=== PATIENT | female | born 1955 | race Caucasian/White ===

== ENCOUNTER 2016-08-08 08:54 | Emergency (ER) | payer OTHER ==
[~2016-08-08] VITALS: Ht 157.5 cm; Wt 73.9 kg
[2016-08-08] MEDS ORDERED: PLAV75TA38 PO (09:06)
[2016-08-08] MEDS ORDERED: FURO20TA2 PO (09:06)
[2016-08-08] MEDS ORDERED: ALBU17IN2 INH (09:06)
[2016-08-08] MEDS ORDERED: ADV250INH INH (09:06)
[2016-08-08] MEDS ORDERED: SIMV40TA2 PO (09:06)
[2016-08-08] MEDS ORDERED: MORPHINE 2 MG/ML 1ML SYRINGE IV PRN (09:30)
[2016-08-08] MEDS ORDERED: PANTOPRAZOLE 40MG INJ (PROTONIX) (C9113) IV ONE (09:30)
[2016-08-08 10:06] LABS: BASO % 0.1 % (0.0-1.0); EOS # 0.4 K/mm3 (0.0-0.50); LARGE UNSTAINED CELL # 0.1 K/mm3 (0.0-0.4); LARGE UNSTAINED CELL % 1.6 % (0.0-4.0); LYMPH # 0.4 K/mm3 (1.5-4.5); LYMPH % 6.9 % (24.0-44.0); MEAN CORPUSCULAR HEMOGLOBIN 30.5 pg (27.0-33.0); MEAN CORPUSCULAR HGB CONC 33.4 g/dl (32.0-36.5); MEAN CORPUSCULAR VOLUME 91.5 fl (80.0-96.0); MONO # 0.4 K/mm3 (0.0-0.8); MONO % 6.2 % (0.0-5.0); NEUTROPHILS # 4.9 K/mm3 (1.8-7.7); NEUTROPHILS % 78.3 % (36.0-66.0); PLATELET COUNT, AUTOMATED 236 k/mm3 (150-450); RED CELL DISTRIBUTION WIDTH 12.9 % (11.5-14.5); WHITE BLOOD COUNT 6.2 K/mm3 (4.0-10.0)
[2016-08-08 10:31] LABS: ALBUMIN/GLOBULIN RATIO 1.25 (1.00-1.93); ALKALINE PHOSPHATASE 90 U/L (45-117); ALT/SGPT 32 U/L (12-78); AMYLASE 62 U/L (25-115); ANION GAP 8 MEQ/L (8-16); AST/SGOT 23 U/L (15-37); BILIRUBIN,DIRECT 0.1 MG/DL (0.0-0.2); BILIRUBIN,TOTAL 0.4 MG/DL (0.2-1.0); BLOOD UREA NITROGEN 9 MG/DL (7-18); CALCIUM LEVEL 9.2 MG/DL (8.5-10.1); CARBON DIOXIDE LEVEL 28 MEQ/L (21-32); CHLORIDE LEVEL 107 MEQ/L (98-107); CREATININE FOR GFR 0.81 MG/DL (0.55-1.02); GLOMERULAR FILTRATION RATE > 60.0 (>51); GLUCOSE, FASTING 95 MG/DL (70-105); POTASSIUM SERUM 4.1 MEQ/L (3.5-5.1); SODIUM LEVEL 143 MEQ/L (136-145); TOTAL PROTEIN 7.2 GM/DL (6.4-8.2)
--- NOTE | 2016-08-08 10:34 | REP ---
Clinical: Lower chest and abdominal pain . Comparison: 04/12/2014 . Technique: PA and lateral. Findings: The mediastinum and cardiac silhouette are normal. The lung stubbs are clear and without acute consolidation, effusion, or pneumothorax. The skeletal structures are intact and normal. Impression: 1. No acute cardiopulmonary process. Signed by Andrew Khan MD 08/08/2016 10:25 A
[2016-08-08] MEDS ORDERED: MORPHINE 2 MG/ML 1ML SYRINGE IV ONE (11:15)
--- NOTE | 2016-08-08 12:38 | REP ---
RIGHT UPPER QUADRANT ULTRASOUND: Real-time sonographic evaluation of the right upper quadrant performed. 5 mm polyp is seen in the gallbladder without gallstones, gallbladder wall thickening or free fluid. There is no intrahepatic or extrahepatic biliary dilatation, common bile duct measuring 6 mm in diameter. Two cysts are seen in the liver, one in the right lobe 1.5 x 1.0 x 1.6 cm and left lobe 0.9 x 0.7 x 0.9 cm. Pancreas is not optimally seen due to overlying bowel gas, but the visualized portions are grossly unremarkable. Visualized pancreatic duct is not dilated. Right kidney demonstrates no hydronephrosis with a length of 10 cm. A cyst in the mid right kidney measures 8 x 7 x 10 mm. IMPRESSION: Tiny gallbladder polyp without gallstones, gallbladder wall thickening, or pericholecystic fluid, or biliary dilatation. Small cysts in the liver and right kidney. Signed by Bryan Teran MD 08/08/2016 01:28 P
[2016-08-08] MEDS ORDERED: TYLE325T5 PO (12:45)
[2016-08-08] MEDS ORDERED: ZANA4CAP PO (12:45)
[2016-08-08 13:19] VITALS: BP 143/67
--- NOTE | 2016-08-08 16:08 | ECGEPIP ---
Stationary ECG Study 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
== END 2016-08-08 13:20 | disposition home or self-care (01) ==
LOC: M ED 10:00
DX: M54.9 Dorsalgia, unspecified (principal); I25.2 Old myocardial infarction; K87 Disorders of gallbladder, biliary tract and pancreas in diseases classified elsewhere; N28.1 Cyst of kidney, acquired; K76.89 Other specified diseases of liver; Z79.02 Long term (current) use of antithrombotics/antiplatelets; Z79.899 Other long term (current) drug therapy; Z88.6 Allergy status to analgesic agent; Z88.1 Allergy status to other antibiotic agents; Z88.8 Allergy status to other drugs, medicaments and biological substances; Z91.89 Other specified personal risk factors, not elsewhere classified
CPT/HCPCS: 71020; 76705; 80048; 80076; 81001; 82150; 82550; 82553; 83690; 85025; 85379; 93005; 93041; 96374; 96375; 96376; 99285; C9113

== ENCOUNTER → 2016-11-08 | Outpatient (REF) | payer OTHER ==
[~2016-11-08] MED LIST: ADV250INH INH; ALBU17IN2 INH; FURO20TA2 PO; PLAV75TA38 PO; SIMV40TA2 PO; TYLE325T5 PO; ZANA4CAP PO
== END ==
LOC: M SFHCLERA 11:28
PROVIDERS: ATTEND Physician Assistant
DX: R30.0 Dysuria (principal)

== ENCOUNTER → 2016-11-12 | Outpatient (CLI) | payer OTHER ==
[2016-11-12 11:57] LABS: MEAN CORPUSCULAR HEMOGLOBIN 31.1 pg (27.0-33.0); MEAN CORPUSCULAR HGB CONC 33.1 g/dl (32.0-36.5); MEAN CORPUSCULAR VOLUME 94.1 fl (80.0-96.0); RED CELL DISTRIBUTION WIDTH 12.6 % (11.5-14.5); WHITE BLOOD COUNT 4.2 K/mm3 (4.0-10.0)
[2016-11-12 12:19] LABS: ANION GAP 5 MEQ/L (8-16); BLOOD UREA NITROGEN 13 MG/DL (7-18); CALCIUM LEVEL 8.4 MG/DL (8.5-10.1); CARBON DIOXIDE LEVEL 29 MEQ/L (21-32); CHLORIDE LEVEL 108 MEQ/L (98-107); CHOLESTEROL LEVEL 172 MG/DL (<200); CREATININE FOR GFR 0.89 MG/DL (0.55-1.02); GLOMERULAR FILTRATION RATE > 60.0 (>51); GLUCOSE, FASTING 101 MG/DL (70-105); SODIUM LEVEL 142 MEQ/L (136-145); TRIGLYCERIDES LEVEL 101 MG/DL (<150)
== END ==
LOC: M LRY 08:05
PROVIDERS: ATTEND Internal Medicine Cardiovascular Disease
DX: E78.00 Pure hypercholesterolemia, unspecified (principal); Z98.61 Coronary angioplasty status; E66.9 Obesity, unspecified; I25.9 Chronic ischemic heart disease, unspecified; I10 Essential (primary) hypertension

== ENCOUNTER → 2017-02-24 | Outpatient (CLI) | payer OTHER ==
[~2017-02-24] MED LIST changes: +PLAV1TAB2 PO; -PLAV75TA38 PO
--- NOTE | 2017-02-24 14:05 | REPMRS ---
Patient History The patient states she had a clinical breast exam in 02/2017. Patient is postmenopausal. Family history of breast cancer in sister at age 65 and breast cancer in maternal grandmother at age 50 or over. Digital Woman Screen Mammo: February 24, 2017 - Exam #: [id number] Bilateral CC and MLO view(s) were taken. Technologist: Tiffanie Bajwa, Technologist Prior study comparison: May 29, 2014, digital woman screen mammo performed at [facility]. March 02, 2013, digital woman screen mammo performed at [facility]. September 03, 2011, digital woman screen mammo performed at [facility] to [facility]. FINDINGS: There are scattered fibroglandular densities. There has been no change in the appearance of the mammogram from the prior studies. There is a mild amount of scattered fibroglandular density which is fairly symmetric. There is no interval development of dominant mass, architectural distortion, or clustered microcalcification suggestive of malignancy. ASSESSMENT: BI-RADS/ACR category 1 mammogram. Negative. Recommendation Routine screening mammogram in 1 year (for women over age 40). This mammogram was interpreted with the aid of an FDA-approved computer-aided dectection system. Electronically Signed By: Willi Garcia MD 02/24/17 [id number]
== END ==
LOC: M WHC 13:01
PROVIDERS: ATTEND Nurse Practitioner Family
DX: Z12.31 Encounter for screening mammogram for malignant neoplasm of breast (principal)

== ENCOUNTER → 2017-08-11 | Outpatient (REF) | payer OTHER ==
[2017-08-11 18:52] LABS: APPEARANCE, URINE CLEAR (CLEAR); BACTERIA, URINE AUTO NEGATIVE (NEGATIVE); BILIRUBIN, URINE AUTO NEGATIVE (NEGATIVE); BLOOD, URINE BLOOD 1+ (NEGATIVE); COLOR, URINE STRAW (YELLOW); GLUCOSE, URINE (UA) AUTO NEGATIVE (NEGATIVE); KETONE, URINE AUTO NEGATIVE (NEGATIVE); LEUKOCYTE ESTERASE, URINE AUTO NEGATIVE (NEGATIVE); MUCUS, URINE SMALL (NEGATIVE); NITRITE, URINE AUTO NEGATIVE (NEGATIVE); PROTEIN, URINE AUTO NEGATIVE (NEGATIVE); RBC, URINE AUTO 3 /HPF (0-3); SPECIFIC GRAVITY URINE AUTO 1.006 (1.002-1.035); SQUAMOUS EPITHELIAL CELL UR AU 0 /HPF (0-6); UROBILINOGEN, URINE AUTO 0.2 mg/dL (0.0-2.0); WBC, URINE AUTO 0 /HPF (0-3)
== END ==
LOC: M SFHCWAGY 17:10
DX: N94.9 Unspecified condition associated with female genital organs and menstrual cycle (principal); R31.29 Other microscopic hematuria

== ENCOUNTER → 2018-02-25 | Outpatient (CLI) | payer OTHER | LOC: M WHC 13:27 | DX: Z12.31 Encounter for screening mammogram for malignant neoplasm of breast (principal) ==

== ENCOUNTER → 2018-02-25 | Outpatient (REF) | payer OTHER ==
[2018-02-27 14:11] LABS: HPV HYBRID CAPTURE II Negative (Negative)
== END ==
LOC: M SFHCWAGY 13:41
DX: Z12.72 Encounter for screening for malignant neoplasm of vagina (principal)
CPT/HCPCS: G0123

== ENCOUNTER → 2018-03-01 | Outpatient (REF) | payer OTHER | LOC: M LAB REF 11:37 | DX: M67.472 Ganglion, left ankle and foot (principal) ==

== ENCOUNTER → 2018-07-09 | Outpatient (CLI) | payer OTHER ==
[~2018-07-09] MED LIST changes: +BREO1INH3 INH; +CRES10TA32 PO; +INCR1INH INH; +MONT10TA2; +OMEP40CA2 PO
[2018-07-09 17:37] LABS: BLOOD UREA NITROGEN 11 MG/DL (7-18); CALCIUM LEVEL 8.8 MG/DL (8.8-10.2); CARBON DIOXIDE LEVEL 29 MEQ/L (21-32); CHLORIDE LEVEL 106 MEQ/L (98-107); CREATININE FOR GFR 0.79 MG/DL (0.55-1.30); GLOMERULAR FILTRATION RATE > 60.0 (>45); GLUCOSE, FASTING 92 MG/DL (70-100); POTASSIUM SERUM 3.8 MEQ/L (3.5-5.1); SODIUM LEVEL 141 MEQ/L (136-145)
[2018-07-09 17:44] LABS: HEMATOCRIT 42.8 % (36.0-47.0); HEMOGLOBIN 14.1 g/dl (12.0-15.5); MEAN CORPUSCULAR HEMOGLOBIN 30.3 pg (27.0-33.0); MEAN CORPUSCULAR HGB CONC 32.9 g/dl (32.0-36.5); PLATELET COUNT, AUTOMATED 222 10^3/uL (150-450); RED BLOOD COUNT 4.65 10^6/uL (4.00-5.40); WHITE BLOOD COUNT 4.8 10^3/uL (4.0-10.0)
== END ==
LOC: M LRY 14:19
PROVIDERS: ATTEND Nurse Practitioner Adult Health
DX: M67.472 Ganglion, left ankle and foot (principal)

== ENCOUNTER → 2018-07-10 | Outpatient (CLI) | payer OTHER ==
--- NOTE | 2018-07-10 15:59 | ECGEPIP ---
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 Rule out prior IWMI Nonspecific ST/T-wave abnormalities - More prominent than in 08/08/16 Clinical correlation advised Electronically Signed On 07-10-2018 15:58:58 EST by Shun Isaacs
== END ==
LOC: M EKG 10:56
PROVIDERS: ATTEND Podiatrist Foot & Ankle Surgery
DX: M67.472 Ganglion, left ankle and foot (principal)

== ENCOUNTER 2018-07-21 05:46 | Day surgery (SDC) | payer OTHER ==
[~2018-07-21] VITALS: Ht 157.5 cm; Wt 74.8 kg
[2018-07-21] MEDS ORDERED: LR 1,000 ML IV ONE (06:00)
[2018-07-21] MEDS ORDERED: SCOPOLAMINE 1MG TRANSDERMAL PATCH As Ordered ONE (07:07)
[2018-07-21] MEDS ORDERED: PROPOFOL 500 MG/50 ML VIAL As Ordered ONE (07:11)
[2018-07-21] MEDS ORDERED: MIDAZOLAM INJ 2 MG/2 ML VIAL (J2250) As Ordered ONE (07:11)
[2018-07-21] MEDS ORDERED: fentaNYL 100 MCG/2 ML INJECTION (J3010) As Ordered ONE (07:11)
[2018-07-21] MEDS ORDERED: LIDOCAINE 2% INJ 100 MG/5 ML SDV (FOR ANES.) As Ordered ONE (07:12)
[2018-07-21] MEDS ORDERED: LIDOCAINE 1% MDV 20ML VIAL As Ordered ONE (07:15)
[2018-07-21] MEDS ORDERED: dexameTHASONE 4 MG/ML 1ML VIAL (J1100) As Ordered ONE ×2 (07:15→07:18)
[2018-07-21] MEDS ORDERED: BUPIVACAINE HCL 0.5% 10 ML VIAL As Ordered ONE (07:15)
[2018-07-21] MEDS ORDERED: ONDANSETRON 4MG/2ML VIAL (J2405) As Ordered ONE (07:18)
[2018-07-21] MEDS ORDERED: SCOPOLAMINE 1MG TRANSDERMAL PATCH TOP ONE (07:30)
[2018-07-21] MEDS ORDERED: HYDR-3713 PO (08:19)
[2018-07-21] MEDS ORDERED: ONDA4TAB6 PO (08:19)
[2018-07-21 09:03] VITALS: BP 130/71
--- NOTE | 2018-07-21 09:45 | RO ---
DATE OF PROCEDURE: 07/21/2018 PREPROCEDURE DIAGNOSIS: Ganglion cyst left side. POSTPROCEDURE DIAGNOSIS: Ganglion cyst left side. PROCEDURE: Left ganglion cyst excision foot. SURGEON: Dre Louis DPM CARE TECH: None. ANESTHESIA: Monitored anesthesia care with preoperative injection of 15 mL of 1:1 mixture of 1% lidocaine plain and 1/2% Marcaine plain. ESTIMATED BLOOD LOSS: Minimal. MATERIALS: #4-0 Vicryl, #4-0 Nylon. INJECTABLE: None. COMPLICATIONS: None. CONDITION: Stable. SPECIMENS: Left ganglion cyst. Salome Keen is a 62-year-old female who presented to [facility] with complaints of ganglion cyst left foot that has been present over a year and has been drained once but has returned. She presents today for surgical excision. The patient side and site were identified and marked in the preoperative holding area. Consent was reviewed and obtained. All risks, complications and alternatives of the procedure were explained to the patient in detail and all questions were answered. DESCRIPTION OF PROCEDURE: The patient was brought to the operating room and placed on the operating room table in supine position. Monitored anesthesia care was delivered by the anesthesia team. Preoperative injection of 15 mL of 1:1 mixture of 1% lidocaine plain and 1/2% Marcaine plain were injected to the left foot. The left foot was prepped and draped in a normal sterile fashion. Pain received Ancef preoperatively. Tourniquet was inflated to the left ankle and inflated to 250 mmHg. A linear incision was made over the ganglion cyst which was located at the dorsal lateral aspect of the foot. This was carried through with a #15 blade. Using tenotomy scissors, the cyst was carefully dissected free. Bovie was used to cauterize small vessels surrounding the cyst. The cyst was dissected from the stalk which was apparently arising from the sinus tarsi and this was sent for pathology. Stalk was cauterized. No further cyst or ganglion fluid was noted. Site was irrigated with normal saline. Incision was repaired with #4-0 Vicryl and #4-0 Nylon. Sterile dressings were applied. Tourniquet was deflated. Patient was brought to postanesthesia care unit with vital signs stable, neurovascular status intact. She will be weight bearing as tolerated. She will followup in office in 2 days.
== END 2018-07-21 09:26 | disposition home or self-care (01) ==
LOC: M SDC 05:46
PROVIDERS: ATTEND Podiatrist Foot & Ankle Surgery
DX: M67.472 Ganglion, left ankle and foot (principal); I10 Essential (primary) hypertension; I25.10 Atherosclerotic heart disease of native coronary artery without angina pectoris; I25.2 Old myocardial infarction; E78.00 Pure hypercholesterolemia, unspecified; J44.9 Chronic obstructive pulmonary disease, unspecified; K21.9 Gastro-esophageal reflux disease without esophagitis; R23.3 Spontaneous ecchymoses; M12.9 Arthropathy, unspecified; J45.909 Unspecified asthma, uncomplicated; R51 Headache; N32.89 Other specified disorders of bladder; Z88.1 Allergy status to other antibiotic agents; Z88.6 Allergy status to analgesic agent; Z91.048 Other nonmedicinal substance allergy status; Z79.899 Other long term (current) drug therapy; Z79.01 Long term (current) use of anticoagulants; Z95.5 Presence of coronary angioplasty implant and graft; Z90.710 Acquired absence of both cervix and uterus; Z87.891 Personal history of nicotine dependence
CPT/HCPCS: 25111; 88304; J0690; J1100; J2250; J2405; J3010

== ENCOUNTER → 2019-04-28 | Outpatient (CLI) | payer OTHER ==
[~2019-04-28] MED LIST changes: +CRES10TA PO; -CRES10TA32 PO; +HYDR-3713 PO; -OMEP40CA2 PO; +OMEP40CA97 PO; +ONDA4TAB6 PO; +PROV108A INH; -SIMV40TA2 PO; +SIMV40TA20 PO
== END ==
LOC: M PLALAB 15:06
PROVIDERS: ATTEND Nurse Practitioner Family
DX: Z13.79 Encounter for other screening for genetic and chromosomal anomalies (principal)

== ENCOUNTER → 2019-04-28 | Outpatient (REF) | payer OTHER | LOC: M SFHCWAGY 16:55 | PROVIDERS: ATTEND Nurse Practitioner Family | DX: R30.0 Dysuria (principal) ==

== ENCOUNTER → 2019-05-10 | Outpatient (REF) | payer OTHER ==
[2019-05-10 13:24] LABS: APPEARANCE, URINE CLEAR (CLEAR); BACTERIA, URINE AUTO 1+ (NEGATIVE); BILIRUBIN, URINE AUTO NEGATIVE (NEGATIVE); BLOOD, URINE BLOOD 1+ (NEGATIVE); COLOR, URINE YELLOW (YELLOW); GLUCOSE, URINE (UA) AUTO NEGATIVE (NEGATIVE); KETONE, URINE AUTO NEGATIVE (NEGATIVE); LEUKOCYTE ESTERASE, URINE AUTO TRACE (NEGATIVE); NITRITE, URINE AUTO NEGATIVE (NEGATIVE); PROTEIN, URINE AUTO NEGATIVE (NEGATIVE); RBC, URINE AUTO 1 /HPF (0-3); SPECIFIC GRAVITY URINE AUTO 1.005 (1.002-1.035); SQUAMOUS EPITHELIAL CELL UR AU 3 /HPF (0-6); UROBILINOGEN, URINE AUTO 0.2 mg/dL (0.0-2.0); WBC, URINE AUTO 1 /HPF (0-3)
== END ==
LOC: M SMT 13:00
PROVIDERS: ATTEND Nurse Practitioner Women's Health
DX: R31.29 Other microscopic hematuria (principal)

== ENCOUNTER → 2019-05-24 | Outpatient (CLI) | payer OTHER ==
[~2019-05-24] MED LIST changes: +ISOVUE-370 76% 100ML VIAL (Q9967) As Ordered ONE
[2019-05-24 16:59] LABS: BLOOD UREA NITROGEN 11 MG/DL (7-18); CALCIUM LEVEL 8.9 MG/DL (8.8-10.2); CARBON DIOXIDE LEVEL 28 MEQ/L (21-32); CHLORIDE LEVEL 104 MEQ/L (98-107); CREATININE FOR GFR 0.79 MG/DL (0.55-1.30); GLOMERULAR FILTRATION RATE > 60.0 (>45); GLUCOSE, FASTING 85 MG/DL (70-100); POTASSIUM SERUM 3.6 MEQ/L (3.5-5.1); SODIUM LEVEL 138 MEQ/L (136-145)
--- NOTE | 2019-05-24 20:49 | REP ---
Clinical: Microscopic hematuria. Technique: Axial precontrast, contrast enhanced, and delayed images of the abdomen and pelvis using 100 ml Isovue 370 intravenous contrast material with coronal and sagittal re-formations. Findings: Incidental subcentimeter left renal cortical cyst noted (image 36). Smaller cortical right renal cyst is also suggested. No further urinary tract abnormalities are identified. No nephroureterolithiasis, hydroureteronephrosis, or renal mass lesion. The kidneys demonstrate normal symmetric enhancement and excretion patterns. The bilateral ureters and bladder are normal. Liver demonstrates few scattered hypodensities compatible with cysts. Spleen, pancreas, gallbladder, and bilateral adrenal glands are normal. The enteric system is without obstruction or acute inflammatory process. Normal terminal ileum and appendix are identified in the right lower quadrant. Few scattered sigmoid diverticula noted without acute diverticulitis. Pelvis demonstrates normal bladder and evidence for prior hysterectomy. No ascites. No free air. No adenopathy. Abdominal aorta without aneurysm or dissection. Musculoskeletal structures are intact. Impression: 1. Subcentimeter renal cysts. No further urinary tract pathology. 2. Sigmoid diverticula without acute diverticulitis. 3. No further acute abdominopelvic pathology appreciated. Electronically Signed by Andrew Khan MD 05/24/2019 08:41 P
== END ==
LOC: M RAD 15:33
PROVIDERS: ATTEND Nurse Practitioner Women's Health
DX: R31.29 Other microscopic hematuria (principal); N28.1 Cyst of kidney, acquired
CPT/HCPCS: 36415; 74178; 80048; Q9967

== ENCOUNTER 2019-07-21 08:32 | Day surgery (SDC) | payer OTHER ==
[~2019-07-21] VITALS: Ht 157.5 cm; Wt 73.9 kg
[~2019-07-21 08:32] MED LIST changes: -ISOVUE-370 76% 100ML VIAL (Q9967) As Ordered ONE; +LIDOCAINE 2% INJ 100 MG/5 ML SDV (FOR ANES.) As Ordered ONE; -MONT10TA2; +MONT10TA4; +NS 1,000 ML IV ONE; +propofoL 200 MG/20 ML VIAL As Ordered ONE
--- NOTE | 2019-07-21 10:31 | ROOR ---
Patient Name: Salome Keen Procedure Date: 07/21/2019 10:10 AM Date of : 1955 Age: 63 [facility] Gender: Female Note Status: Finalized Procedure: Colonoscopy Indications: High risk colon cancer surveillance: Personal history of colonic polyps Providers: Claude Engel Jr, MD Referring MD: Wiliam Newman Requesting Provider: Medicines: Propofol per Anesthesia Complications: No immediate complications. Procedure: Pre-Anesthesia Assessment: - Prior to the procedure, a History and Physical was performed, and patient medications and allergies were reviewed. The patient is competent. The risks and benefits of the procedure and the sedation options and risks were discussed with the patient. All questions were answered and informed consent was obtained. Patient identification and proposed procedure were verified by the physician and the nurse in the pre-procedure area and in the procedure room. Mental Status Examination: alert and oriented. Airway Examination: normal oropharyngeal airway and neck mobility. Respiratory Examination: clear to auscultation. CV Examination: normal. ASA Grade Assessment: II - A patient with mild systemic disease. After reviewing the risks and benefits, the patient was deemed in satisfactory condition to undergo the procedure. The anesthesia plan was to use moderate sedation / analgesia (conscious sedation). Immediately prior to administration of medications, the patient was re-assessed for adequacy to receive sedatives. The heart rate, respiratory rate, oxygen saturations, blood pressure, adequacy of pulmonary ventilation, and response to care were monitored throughout the procedure. The physical status of the patient was re-assessed after the procedure. The Colonoscope was introduced through the anus and advanced to the cecum, identified by appendiceal orifice and ileocecal valve. The colonoscopy was performed without difficulty. The patient tolerated the procedure well. The quality of the bowel preparation was adequate. Findings: The rectum, recto-sigmoid colon, sigmoid colon, descending colon, transverse colon, cecum, appendiceal orifice and ileocecal valve appeared normal. A small polyp was found in the ascending colon. The polyp was removed with a cold snare. Resection and retrieval were complete. Non-bleeding external and internal hemorrhoids were found during endoscopy. The hemorrhoids were moderate. Impression: - The rectum, recto-sigmoid colon, sigmoid colon, descending colon, transverse colon, cecum, appendiceal orifice and ileocecal valve are normal. - One small polyp in the ascending colon, removed with a cold snare. Resected and retrieved. - Non-bleeding external and internal hemorrhoids. Recommendation: - Discharge patient to home (ambulatory). - Repeat colonoscopy in 5 years for surveillance. Claude Engel MD Claude Engel Jr, MD 07/21/2019 10:30:47 AM Electronically signed by Claude Engel Jr, MD Number of Addenda: 0 Note Initiated On: 07/21/2019 10:10 AM Estimated Blood Loss: Estimated blood loss: none.
[2019-07-21 10:50] VITALS: BP 149/103
== END 2019-07-21 10:55 | disposition home or self-care (01) ==
LOC: M OPP 08:32
PROVIDERS: ATTEND Surgery
DX: Z12.11 Encounter for screening for malignant neoplasm of colon (principal); Z86.010 Personal history of colon polyps; K64.8 Other hemorrhoids; D12.2 Benign neoplasm of ascending colon; I25.2 Old myocardial infarction; Z95.5 Presence of coronary angioplasty implant and graft; Z79.899 Other long term (current) drug therapy; Z88.1 Allergy status to other antibiotic agents; Z88.6 Allergy status to analgesic agent; Z88.8 Allergy status to other drugs, medicaments and biological substances; Z91.048 Other nonmedicinal substance allergy status

== ENCOUNTER 2020-06-06 10:00 | Inpatient (IN) | payer OTHER ==
[~2020-06-06] VITALS: Ht 157.5 cm; Wt 73.6 kg
[2020-06-06] MEDS: TIOTROPIUM INHALER/CAPSULE (SPIRIVA) INH SCH (08:00)
[~2020-06-06 10:00] MED LIST changes: -LIDOCAINE 2% INJ 100 MG/5 ML SDV (FOR ANES.) As Ordered ONE; +MONT10TA10 PO; -MONT10TA4; -NS 1,000 ML IV ONE; -propofoL 200 MG/20 ML VIAL As Ordered ONE
--- OUTSIDE RECORDS SUMMARY | 2020-06-06 10:07 | CCD ---
Author Author [facility] Organization [facility] Address Unknown Phone Unavailable Care Team Providers Care Seafood Packer Name Role Phone Beny, N Robbie WATCHSTANDER Unavailable Unavailable [place], N Robbie WATCHSTANDER Unavailable Unavailable Beny, N Robbie WATCHSTANDER Unavailable Unavailable Beny, N Robbie WATCHSTANDER Unavailable Unavailable Beny, N Robbie WATCHSTANDER Unavailable Unavailable [place], N Robbie WATCHSTANDER Unavailable Unavailable Beny, N Robbie WATCHSTANDER Unavailable Unavailable [place], N Robbie WATCHSTANDER Unavailable Unavailable [place], N Robbie WATCHSTANDER Unavailable Unavailable [place], N Robbie WATCHSTANDER Unavailable Unavailable Beny, N Robbie WATCHSTANDER Unavailable Unavailable Beny, N Robbie WATCHSTANDER Unavailable Unavailable Beny, N Robbie WATCHSTANDER Unavailable Unavailable [place], N Robbie WATCHSTANDER Unavailable Unavailable Beny, N Robbie WATCHSTANDER Unavailable Unavailable [place], N Robbie WATCHSTANDER Unavailable Unavailable Beny, N Robbie WATCHSTANDER Unavailable Unavailable Beny, N Robbie WATCHSTANDER Unavailable Unavailable [place], N Robbie WATCHSTANDER Unavailable Unavailable [place], N Robbie WATCHSTANDER Unavailable Unavailable Beny, N Robbie WATCHSTANDER Unavailable Unavailable Beny, N Robbie WATCHSTANDER Unavailable Unavailable Beny, N Robbie WATCHSTANDER Unavailable Unavailable Beny, N Robbie WATCHSTANDER Unavailable Unavailable Beny, N Robbie WATCHSTANDER Unavailable Unavailable [place], N Robbie WATCHSTANDER Unavailable Unavailable [place], N Robbie WATCHSTANDER Unavailable Unavailable Beny, N Robbie WATCHSTANDER Unavailable Unavailable Beny, N Robbie WATCHSTANDER Unavailable Unavailable Beny, N Robbie WATCHSTANDER Unavailable Unavailable Re-disclosure Warning The records that you are about to access may contain information from federally-assisted alcohol or drug abuse programs. If such information is present, then the following federally mandated warning applies: This information has been disclosed to you from records protected by federal confidentiality rules (42 CFR part 2). The federal rules prohibit you from making any further disclosure of this information unless further disclosure is expressly permitted by the written consent of the person to whom it pertains or as otherwise permitted by 42 CFR part 2. A general authorization for the release of medical or other information is NOT sufficient for this purpose. The Federal rules restrict any use of the information to criminally investigate or prosecute any alcohol or drug abuse patient.The records that you are about to access may contain highly sensitive health information, the redisclosure of which is protected by Article 27-F of the [facility] Public Health law. If you continue you may have access to information: Regarding HIV / AIDS; Provided by facilities licensed or operated by the [facility] Office of Mental Health; or Provided by the [facility] Office for People With Developmental Disabilities. If such information is present, then the following [facility] mandated warning applies: This information has been disclosed to you from confidential records which are protected by state law. State law prohibits you from making any further disclosure of this information without the specific written consent of the person to whom it pertains, or as otherwise permitted by law. Any unauthorized further disclosure in violation of state law may result in a fine or residential sentence or both. A general authorization for the release of medical or other information is NOT sufficient authorization for further disc losure. Allergies and Adverse Reactions Type Description Substance Reaction Status Data Source(s ) Environmental Environmental Environmental Unknown Active eCW1 ([facility]) Aspirin Aspirin Aspirin Hives Active eCW1 ([facility]) Neosporin Neosporin Neosporin Hives Active eCW1 ([facility]) Environmental Environmental Environmental Unknown Active eCW1 ([facility]) Neosporin Neosporin Neosporin Hives Active eCW1 ([facility]) Environmental Environmental Environmental Unknown Active eCW1 ([facility]) Neosporin Neosporin Neosporin Hives Active eCW1 ([facility]) Environmental Environmental Environmental Unknown Active eCW1 ([facility]) Neosporin Neosporin Neosporin Hives Active eCW1 ([facility]) Family History Family Member Name Family Member Gender Family Member Status Date o f Status Description Data Source(s) Unknown Unknown Problem MEDENT ([facility]) Unknown Male Problem MEDENT ([facility] Unknown Male Problem MEDENT ([facility]) () Unknown Male Problem MEDENT [facility] () Unknown Male Problem MEDENT ([facility] ) Encounters Encounter Providers Location Date Indications Data Source(s ) Outpatient Attender: Robbie [email or web address] [email or web address] 12:00:00 AM EDT - 11/15/2019 09:16:44 AM EDT [address] [phone] 06/27/2019 12:00:00 AM EST eCW1 ([facility]) [facility] [address] [place] [phone] 06/15/2019 12:00:00 AM EST eCW1 ([facility]) [facility] [address] [place] [phone] 06/15/2019 12:00:00 AM EST eCW1 ([facility]) [address] [address] 06/07/2019 12:00:00 AM EST eCW1 ([facility]) [facility] [address] [place] [phone] 05/16/2019 12:00:00 AM EST eCW1 ([facility]) [facility] [address] [place] [address] 05/10/2019 12:00:00 AM EST eCW1 ([facility]) [facility] [address] [place] [address] 04/28/2019 12:00:00 AM EST eCW1 ([facility]) Immunizations Vaccine Date Status Description Data Source(s) INFLUENZA VIRUS VACCINE QUADRIVAL (6 MOS AND UP)/PF 02/07/2020 12:00:00 AM EDT completed [facility] Medications Medication Brand Name Start Date Product Form Dose Route Admi nistrative Instructions Pharmacy Instructions Status Indications Reaction Description Data Source(s) 75 mg 01/13/2020 12:00:00 AM EDT tablet 90 TAKE ONE TABLET BY MOUTH EVERY DAY TAKE ONE TABLET BY MOUTH EVERY DAY SOLD: 01/14/2020 [facility] 75 mg 01/13/2020 12:00:00 AM EDT tablet 90 TAKE ONE TABLET BY MOUTH EVERY DAY TAKE ONE TABLET BY MOUTH EVERY DAY SOLD: 04/14/2020 [facility] 20 mg 12/10/2019 12:00:00 AM EDT tablet 90 TAKE ONE TABLET BY MOUTH EVERY DAY TAKE ONE TABLET BY MOUTH EVERY DAY SOLD: 12/11/2019 [facility] 20 mg 12/10/2019 12:00:00 AM EDT tablet 90 TAKE ONE TABLET BY MOUTH EVERY DAY TAKE ONE TABLET BY MOUTH EVERY DAY SOLD: 03/28/2020 [facility] 90 mcg/actuation 08/02/2019 12:00:00 AM EDT HFA aerosol inha ler 18 INHALE 2 PUFFS BY MOUTH EVERY 4 HOURS NEEDED INHALE 2 PUFFS BY MOUTH EVERY 4 HOURS NEEDED SOLD: 08/04/2019 [facility] 17.5-3.13-1.6 gram 07/15/2019 12:00:00 AM EST recon soln 354 DIRECTED BY PHYSICIAN DIRECTED BY PHYSICIAN SOLD: 07/18/2019 [facility] 75 mg 06/30/2019 12:00:00 AM EST tablet 90 TAKE 1 TABLET [75MG] BY MOUTH DAILY TAKE 1 TABLET [75MG] BY MOUTH DAILY SOLD: 10/10/2019 [facility] 75 mg 06/30/2019 12:00:00 AM EST tablet 90 TAKE 1 TABLET [75MG] BY MOUTH DAILY TAKE 1 TABLET [75MG] BY MOUTH DAILY SOLD: 07/02/2019 [facility] Sulfamethoxazole 800 MG / Trimethoprim 1 60 MG Oral Tablet [Bactrim] Bactrim DS 800-160 MG Bactrim DS 800-160 MG 05/17/2019 12:00:00 AM EST active 1 tablet eCW1 ([facility]) Sulfamethoxazole 800 MG / Trimethoprim 1 60 MG Oral Tablet [Bactrim] Bactrim DS 800-160 MG Bactrim DS 800-160 MG 05/17/2019 12:00:00 AM EST suspended 1 tablet eCW1 ([facility]) Sulfamethoxazole 800 MG / Trimethoprim 1 60 MG Oral Tablet [Bactrim] Bactrim DS 800-160 MG Bactrim DS 800-160 MG 05/17/2019 12:00:00 AM EST suspended 1 tablet eCW1 ([facility]) 20 mg 05/12/2019 12:00:00 AM EST tablet 90 TAKE ONE TABLET BY MOUTH EVERY DAY TAKE ONE TABLET BY MOUTH EVERY DAY SOLD: 05/15/2019 [facility] 20 mg 05/12/2019 12:00:00 AM EST tablet 90 TAKE ONE TABLET BY MOUTH EVERY DAY TAKE ONE TABLET BY MOUTH EVERY DAY SOLD: 08/27/2019 [facility] Insurance Providers Payer name Policy type / Coverage type Policy ID Covered republican ID Covered republican's relationship to masters Policy Masters Plan Information [facility] [id number] SP [id number] UMR [id number] Marie [id number] [facility] [id number] SP [id number] UMR CO [id number] 18 [id number] UMR -O/P [id number] 18 [id number] [employer] [id number] 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 [id number] UMR [id number] Commercial Insur ance Co. [id number] [employer]mr Commercial [id number] Self [id number] [employer]mr Commercial [id number] Self [id number] [employer] [id number] Self [id number] [employer] Commercial [id number] Self [id number] Umr Commercial [id number] Self [id number] ANSI-Commercial [id number] Umr Commercial [id number] Self [id number] Umr Commercial [id number] Self [id number] [employer] ([employer]) [id number] Se lf [id number] [employer] [place] [id number] 18 [id number] [employer]-O/P [id number] 18 [id number] [employer] [id number] 18 [id number] [employer] PPO O [id number] S [id number] [employer] [id number] Self [id number] [employer] [id number] SP [id number] [employer] (pr) Commercial [id number] Self [id number] [employer]pr[employer] Commercial [id number] Self [id number] [employer] [id number] Self [id number] [employer] (H[employer]) [id number] Se lf [id number] [employer]pr[employer] Commercial [id number] Self [id number] [employer] (HMO) [id number] Se lf [id number] [employer] (H[employer]) Se lf [employer] [id number] SP [id number] Problems, Conditions, and Diagnoses Code Display Name Description Problem Type Effective Dates Data Source(s) E78.5 Hyperlipidemia, unspecified Hyperlipidemia, unspecifie d Diagnosis 11/15/2019 08:50:37 AM EDT [facility] E78.00 Pure hypercholesterolemia, unspecified P ure hypercholesterolemia, unspecified Diagnosis 11/15/2019 08:50:37 AM EDT [facility] I10 Essential (primary) hypertension Essential (primary) h ypertension Diagnosis 11/15/2019 08:50:37 AM EDT [facility] Z98.61 Coronary angioplasty status Coronary angioplasty statu s Diagnosis 11/15/2019 08:50:37 AM EDT [facility] Surgeries/Procedures Procedure Description Date Indications Data Source(s) CYSTOSCOPY 06/15/2019 12:00:00 AM EST e CW1 ([facility]) URINE-NO MICRO 04/28/2019 12:00:00 AM EST eCW1 ([facility]) Results ID Date Data Source [id number] 05/29/2020 12:00:00 AM EST [facility] Name Value Range Interpretation Code Description Data Christina rce(s) Supporting Document(s) SARS-CoV2 Rapid Antigen Positive [facility] This lab was ordered by [facility] and reported by Scott Vallejo MD. ID Date Data Source NON THERAPY TECH CYTOLOGY REQ FOR SERVI 05/10/2019 12:00:00 AM EST eC W1 ([facility]) Name Value Range Interpretation Code Description Data Christina rce(s) Supporting Document(s) URINE eCW1 ([facility]) Procedure Vital Signs ID Date Data Source UNK Name Value Range Interpretation Code Description Data Source(s) Diastolic blood pressure 66 mm[Hg] 66 mm[Hg] eCW1 ([facility]) Systolic blood pressure 122 mm[Hg] 122 mm[Hg] e CW1 ([facility]) Body mass index (BMI) [Ratio] 30.92 kg/m2 30.92 kg/m2 W1 ([facility]) Body height 61.25 [in_us] 61.25 [in_us] eCW1 ([facility]) Body weight Measured 165 [lb_av] 165 [lb_av] eC W1 ([facility]) Diastolic blood pressure 80 mm[Hg] 80 mm[Hg] eCW1 ([facility]) Systolic blood pressure 138 mm[Hg] 138 mm[Hg] e CW1 ([facility]) Body temperature 96.9 [degF] 96.9 [degF] eCW1 ( [facility]) Respiratory rate 18 /min 18 /min eCW1 ([facility]) Heart rate 78 /min 78 /min eCW1 ([facility]) Body mass index (BMI) [Ratio] 310.69 kg/m2 310. 69 kg/m2 W1 ([facility]) Body height 61.25 [in_us] 61.25 [in_us] eCW1 ([facility]) Body weight Measured [lb_av] eCW1 ([facility]) Diastolic blood pressure 88 mm[Hg] 88 mm[Hg] eCW1 ([facility]) Systolic blood pressure 140 mm[Hg] 140 mm[Hg] e CW1 ([facility]) Body temperature 96.9 [degF] 96.9 [degF] eCW1 ( [facility]) Respiratory rate 18 /min 18 /min eCW1 ([facility]) Heart rate 67 /min 67 /min eCW1 ([facility]) Body mass index (BMI) [Ratio] 30.54 kg/m2 30.54 kg/m2 eCW1 ([facility]) Body height 61.25 [in_us] 61.25 [in_us] eCW1 ([facility]) Body weight Measured 163 [lb_av] 163 [lb_av] eC W1 ([facility]) Body weight 73.937 kg 73.937 kg [facility], ) Body mass index (BMI) [Ratio] 29.8 kg/m2 29.8 k g/m2 [facility] ([facility], ) Body weight 163.00 [lb_av] 163.00 [lb_av] MEDEN T ([facility], ) Body height 62 [in_i] 62 [in_i] [facility] ([facility], ) 5'2" Oxygen saturation in Arterial blood by Pulse oximetry 97 % 97 % [facility] ([facility], ) Room Air Heart rate 67 /min 67 /min [facility] ([facility], ) Diastolic blood pressure 70 mm[Hg] 70 mm[Hg] MEDENT ([facility], ) Systolic blood pressure 122 mm[Hg] 122 mm[Hg] M EDENT ([facility], ) Diastolic blood pressure 74 mm[Hg] 74 mm[Hg] eCW1 ([facility]) Systolic blood pressure 124 mm[Hg] 124 mm[Hg] e CW1 ([facility]) Body mass index (BMI) [Ratio] 30.36 kg/m2 30.36 kg/m2 eCW1 ([facility]) Body height 61.25 [in_us] 61.25 [in_us] eCW1 ([facility]) Body weight Measured 162 [lb_av] 162 [lb_av] eC W1 ([facility]) Patient Treatment Plan of Care Planned Activity Planned Date Details Description Data Source (s) Sulfamethoxazole 800 MG / Trimethoprim 160 MG Oral Tab let [Bactrim] 05/17/2019 12:00:00 AM EST eCW1 ([facility])
[2020-06-06] MEDS ORDERED: ONDA-83 PO (10:27)
[2020-06-06] MEDS ORDERED: ROSU10TA6 PO (10:27)
--- OUTSIDE RECORDS SUMMARY | 2020-06-06 11:13 | CCD ---
Author Author [facility] Organization [facility] Address Unknown Phone Unavailable Care Team Providers Care Log Deckman Name Role Phone Beny, N Robbie MOTION PI[employer]URE SET GRIP Unavailable Unavailable Beny, N Robbie MOTION PICTURE SET GRIP Unavailable Unavailable Beny, N Robbie MOTION PICTURE SET GRIP Unavailable Unavailable Beny, N Robbie MOTION PICTURE SET GRIP Unavailable Unavailable Beny, N Robbie MOTION PICTURE SET GRIP Unavailable Unavailable Beny, N Robbie MOTION PICTURE SET GRIP Unavailable Unavailable Beny, N Robbie MOTION PICTURE SET GRIP Unavailable Unavailable Beny, N Robbie MOTION PICTURE SET GRIP Unavailable Unavailable Obion, N Robbie MOTION PICTURE SET GRIP Unavailable Unavailable Obion, N Robbie MOTION PICTURE SET GRIP Unavailable Unavailable Obion, N Robbie MOTION PICTURE SET GRIP Unavailable Unavailable Beny, N Robbie MOTION PICTURE SET GRIP Unavailable Unavailable Beny, N Robbie MOTION PICTURE SET GRIP Unavailable Unavailable Beny, N Robbie MOTION PICTURE SET GRIP Unavailable Unavailable Beny, N Robbie MOTION PICTURE SET GRIP Unavailable Unavailable Beny, N Robbie MOTION PICTURE SET GRIP Unavailable Unavailable Obion, N Robbie MOTION PI[employer]URE SET GRIP Unavailable Unavailable Obion, N Robbie MOTION PICTURE SET GRIP Unavailable Unavailable Obion, N Robbie MOTION PICTURE SET GRIP Unavailable Unavailable Obion, N Robbie MOTION PICTURE SET GRIP Unavailable Unavailable Beny, N Robbie MOTION PI[employer]URE SET GRIP Unavailable Unavailable Beny, N Robbie MOTION PICTURE SET GRIP Unavailable Unavailable Beny, N Robbie MOTION PICTURE SET GRIP Unavailable Unavailable Beny, N Robbie MOTION PICTURE SET GRIP Unavailable Unavailable Obion, N Robbie MOTION PICTURE SET GRIP Unavailable Unavailable Beny, N Robbie MOTION PICTURE SET GRIP Unavailable Unavailable Obion, N Robbie MOTION PICTURE SET GRIP Unavailable Unavailable Obion, N Robbie MOT[employer] PI[employer]URE SET GRIP Unavailable Unavailable Obion, N Robbie MOT[employer] PI[employer] SET GRIP Unavailable Unavailable Beny, N Robbie [employer] PI[employer] SET GRIP Unavailable Unavailable Re-disclosure Warning The records that [...] is protected by Article 27-F of the [facility] Public Health law. If you continue you may have access to information: Regarding HIV / AIDS; Provided by facilities licensed or operated by the [facility] Office of Mental Health; or Provided by the [facility] Office for People With Developmental Disabilities. If such information is present, then the following [facility] mandated warning applies: This information has been [...] law may result in a fine or custodial sentence or both. A general authorization for the release of medical or other information is NOT sufficient authorization for further disc losure. Allergies and Adverse Reactions Type Description Substance Reaction Status Data Source(s ) Environmental Environmental Environmental Unknown Active eCW1 ([facility]) Aspirin Aspirin Aspirin Hives Active eCW1 ([facility]) Neosporin Neosporin Neosporin Hives Active eCW1 ([facility]) Environmental Environmental Environmental Unknown Active eCW1 ([facility]) Neosporin Neosporin Neosporin Hives Active eCW1 ([facility]) Environmental Environmental Environmental Unknown Active eCW1 ([facility]) Neosporin Neosporin Neosporin Hives Active eCW1 ([facility]) Environmental Environmental Environmental Unknown Active eCW1 ([facility]) Neosporin Neosporin Neosporin Hives Active eCW1 ([facility]) Family History Family Member Name Family Member Gender Family Member Status Date o f Status Description Data Source(s) Unknown Unknown Problem MEDENT ([facility]) Unknown Male Problem MEDENT ([facility] Unknown Male Problem MEDENT ([facility]) () Unknown Male Problem MEDENT [facility] () Unknown Male Problem MEDENT ([facility] ) Encounters Encounter Providers Location Date Indications Data Source(s ) Outpatient Attender: Robbie Swan NP [email or web address] [id number] 12:00:00 AM EDT - 11/15/2019 09:16:44 [place] [address] 06/27/2019 12:00:00 AM EST eCW1 ([facility]) [facility] [address] [place] [phone] 06/15/2019 12:00:00 AM EST eCW1 ([facility]) [facility] [address] [place] [phone] 06/15/2019 12:00:00 AM EST eCW1 ([facility]) [address] [address] 06/07/2019 12:00:00 AM EST eCW1 ([facility]) [facility] [address] [place] [phone] 05/16/2019 12:00:00 AM EST eCW1 ([facility]) [facility] [address] [place] [address] 05/10/2019 12:00:00 AM EST eCW1 ([facility]) [facility] [address] [place] [address] 04/28/2019 12:00:00 AM EST eCW1 ([facility]) Immunizations Vaccine Date Status Description Data Source(s) [...] 12:00:00 AM EST active 1 tablet eCW1 ([facility]) Sulfamethoxazole 800 MG / Trimethoprim 1 60 MG Oral Tablet [Bactrim] Bactrim DS 800-160 MG Bactrim DS 800-160 MG 05/17/2019 12:00:00 AM EST suspended 1 tablet eCW1 ([facility]) Sulfamethoxazole 800 MG / Trimethoprim 1 60 MG Oral Tablet [Bactrim] Bactrim DS 800-160 MG Bactrim DS 800-160 MG 05/17/2019 12:00:00 AM EST suspended 1 tablet eCW1 ([facility]) 20 mg 05/12/2019 12:00:00 AM EST tablet [...] type / Coverage type Policy ID Covered alliance party ID Covered alliance party's relationship to masters Policy Masters Plan Information [facility] [id number] SP [id number] UMR [id number] Marie [id number] [facility] [id number] SP [id number] UMR CO [id number] 18 [id number] UMR -O/P [id number] 18 [id number] [employer] [id number] 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 [id number] Commercial Insur ance Co. [id number] [employer] [id number] Self [id number] [employer]mr Commercial [id number] Self [id number] Umr Commercial [id number] Self [id number] [employer] Commercial [id number] Self [id number] Umr Commercial [id number] Self [id number] ANSI-Commercial [id number] Umr Commercial [id number] Self [id number] Umr Commercial [id number] Self [id number] [employer] (HMO) [id number] Se lf [id number] [employer] BC [id number] 18 [id number] [employer]-O/P [id number] 18 [id number] [employer] [id number] 18 [id number] [employer] PPO O [id number] S [id number] [employer] [id number] Self [id number] [employer] [id number] SP [id number] [employer] (pr) Commercial [id number] Self [id number] [employer] (pr) Commercial [id number] Self [id number] [employer] [id number] Self [id number] [employer] (HMO) [id number] Se lf [id number] [employer] (pr) Commercial [id number] Self [id number] [employer] (HMO) [id number] Se lf [id number] [employer] (HMO) Se lf [employer] [id number] SP [id number] Problems, Conditions, and Diagnoses Code Display Name Description Problem Type Effective Dates Data Source(s) E78.5 Hyperlipidemia, unspecified Hyperlipidemia, unspecifie d Diagnosis 11/15/2019 08:50:37 AM EDT [facility] E78.00 Pure hypercholesterolemia, unspecified P ure hypercholesterolemia, unspecified Diagnosis 11/15/2019 08:50:37 AM EDT [facility] I10 Essential (primary) hypertension Essential (primary) h ypertension Diagnosis 11/15/2019 08:50:37 AM EDT [facility] Z98.61 Coronary angioplasty status Coronary angioplasty statu s Diagnosis 11/15/2019 08:50:37 AM EDT [facility] Surgeries/Procedures Procedure Description Date Indications Data Source(s) CYSTOSCOPY 06/15/2019 12:00:00 AM EST e CW1 ([facility]) URINE-NO MICRO 04/28/2019 12:00:00 AM EST eCW1 ([facility]) Results ID Date Data Source [id number] 05/29/2020 12:00:00 AM EST [facility] Name Value Range Interpretation Code Description Data Christina rce(s) Supporting Document(s) SARS-CoV2 Rapid Antigen Positive [facility] This lab was ordered by [facility] and reported by Scott Vallejo MD. ID Date Data Source NON STRATEGIC SOURCING SPECIALIST CYTOLOGY REQ FOR SERVI 05/10/2019 12:00:00 AM EST eC W1 ([facility]) Name Value Range Interpretation Code Description Data Christina rce(s) Supporting Document(s) URINE eCW1 ([facility]) Procedure Vital Signs ID Date Data Source UNK Name Value Range Interpretation Code Description Data Source(s) Diastolic blood pressure 66 mm[Hg] 66 mm[Hg] eCW1 ([facility]) Systolic blood pressure 122 mm[Hg] 122 mm[Hg] e CW1 ([facility]) Body mass index (BMI) [Ratio] 30.92 kg/m2 30.92 kg/m2 W1 ([facility]) Body height 61.25 [in_us] 61.25 [in_us] eCW1 ([facility]) Body weight Measured 165 [lb_av] 165 [lb_av] eC W1 ([facility]) Diastolic blood pressure 80 mm[Hg] 80 mm[Hg] eCW1 ([facility]) Systolic blood pressure 138 mm[Hg] 138 mm[Hg] e CW1 ([facility]) Body temperature 96.9 [degF] 96.9 [degF] eCW1 ( [facility]) Respiratory rate 18 /min 18 /min eCW1 ([facility]) Heart rate 78 /min 78 /min eCW1 ([facility]) Body mass index (BMI) [Ratio] 310.69 kg/m2 310. 69 kg/m2 W1 ([facility]) Body height 61.25 [in_us] 61.25 [in_us] eCW1 ([facility]) Body weight Measured [lb_av] eCW1 ([facility]) Diastolic blood pressure 88 mm[Hg] 88 mm[Hg] eCW1 ([facility]) Systolic blood pressure 140 mm[Hg] 140 mm[Hg] e CW1 ([facility]) Body temperature 96.9 [degF] 96.9 [degF] eCW1 ( [facility]) Respiratory rate 18 /min 18 /min eCW1 ([facility]) Heart rate 67 /min 67 /min eCW1 ([facility]) Body mass index (BMI) [Ratio] 30.54 kg/m2 30.54 kg/m2 eCW1 ([facility]) Body height 61.25 [in_us] 61.25 [in_us] eCW1 ([facility]) Body weight Measured 163 [lb_av] 163 [lb_av] eC W1 ([facility]) Body weight 73.937 kg 73.937 kg MEDJUICE ([facility], ) Body mass index (BMI) [Ratio] 29.8 kg/m2 29.8 k g/m2 [facility], ) Body weight 163.00 [lb_av] 163.00 [lb_av] MEDEN T ([facility], ) Body height 62 [in_i] 62 [in_i] MEDJUICE ([facility], ) 5'2" Oxygen saturation in Arterial blood by Pulse oximetry 97 % 97 % [facility] ([facility], ) Room Air Heart rate 67 /min 67 /min MEDJUICE ([facility], ) Diastolic blood pressure 70 mm[Hg] 70 mm[Hg] MEDENT ([facility], ) Systolic blood pressure 122 mm[Hg] 122 mm[Hg] M EDENT ([facility], ) Diastolic blood pressure 74 mm[Hg] 74 mm[Hg] eCW1 ([facility]) Systolic blood pressure 124 mm[Hg] 124 mm[Hg] e CW1 ([facility]) Body mass index (BMI) [Ratio] 30.36 kg/m2 30.36 kg/m2 eCW1 ([facility]) Body height 61.25 [in_us] 61.25 [in_us] eCW1 ([facility]) Body weight Measured 162 [lb_av] 162 [lb_av] eC W1 ([facility]) Patient Treatment Plan of Care Planned Activity Planned Date Details Description Data Source (s) Sulfamethoxazole 800 MG / Trimethoprim 160 MG Oral Tab let [Bactrim] 05/17/2019 12:00:00 AM EST eCW1 ([facility])
[2020-06-06] MEDS ORDERED: ONDANSETRON 4MG/2ML VIAL IV ONE (11:15)
[2020-06-06] MEDS ORDERED: NS 500 ML IV ONE (11:15)
[2020-06-06 11:30] LABS: BASO % 0.3 % (0.0-1.0); HEMATOCRIT 41.1 % (36.0-47.0); HEMOGLOBIN 13.7 g/dl (12.0-15.5); LYMPH # 0.3 10^3/uL (1.5-5.0); LYMPH % 8.9 % (24.0-44.0); MEAN CORPUSCULAR HEMOGLOBIN 29.7 pg (27.0-33.0); MEAN CORPUSCULAR HGB CONC 33.3 g/dl (32.0-36.5); MONO # 0.4 10^3/uL (0.0-0.8); MONO % 9.1 % (0.0-5.0); NEUTROPHILS # 3.1 10^3/uL (1.5-8.5); NEUTROPHILS % 81.2 % (36.0-66.0); PLATELET COUNT, AUTOMATED 197 10^3/uL (150-450); RED BLOOD COUNT 4.62 10^6/uL (4.00-5.40); WHITE BLOOD COUNT 3.8 10^3/uL (4.0-10.0)
--- NOTE | 2020-06-06 11:35 | REP ---
INDICATION: Coronavirus workup COMPARISON: 08/08/2016 TECHNIQUE: Portable AP view of the chest FINDINGS: The mediastinum and cardiac silhouette are stable and within normal limits for portable technique. The lung stubbs demonstrate bilateral lower lobe airspace disease (right greater than left). No effusion. No pneumothorax. Skeletal structures intact. IMPRESSION: Bibasilar airspace disease. <Electronically signed by Andrew Khan > 06/06/20 [id number]
[2020-06-06 12:06] LABS: ALBUMIN 3.5 GM/DL (3.2-5.2); ALT/SGPT 27 U/L (12-78); BILIRUBIN,TOTAL 0.5 MG/DL (0.2-1.0); BLOOD UREA NITROGEN 13 MG/DL (7-18); C REACTIVE PROTEIN QUANTITATIV 1.71 MG/DL (0.00-0.30); CALCIUM LEVEL 8.2 MG/DL (8.8-10.2); CARBON DIOXIDE LEVEL 25 MEQ/L (21-32); CHLORIDE LEVEL 103 MEQ/L (98-107); CREATININE FOR GFR 0.83 MG/DL (0.55-1.30); FERRITIN 345 NG/ML (8-252); GLOMERULAR FILTRATION RATE > 60.0 (>45); GLUCOSE, FASTING 112 MG/DL (70-100); LDH LACTATE DEHYDROGENASE 341 U/L (84-246); SODIUM LEVEL 135 MEQ/L (136-145); TOTAL PROTEIN 6.4 GM/DL (6.4-8.2); TROPONIN I 0.02 NG/ML (< 0.10)
[2020-06-06] MEDS ORDERED: MUCI1TAB16 PO (13:37)
[2020-06-06] MEDS ORDERED: VENTAER INH (13:37)
--- NOTE | 2020-06-06 13:51 | HPEPDOC ---
[facility] Medical History & Physical Date of Admission Jun 06, 2020 Date of Service: Jun 06, 2020 History and Physical CHIEF COMPLAINT: malaise, fatigue, nausea HISTORY OF PRESENT ILLNESS: 64 year old female with PMHx including CAD/multiple stents, COPD and recent positive COVID test on 05/28/20. For the past nine days she has been experiencing waxing and waning nausea/vomiting/diarrhea with malaise and fatigue. Was not complaining of shortness of breath until today. On evaluation in the ED she was noted to desaturate to 86% on room air with ambulation. Denies chest pain, headaches, abdominal pain. PAST MEDICAL HISTORY: #CAD/stents #asthma/COPD #recent +COVID 05/28/20 #DLP ALLERGIES: Please see below. REVIEW OF SYSTEMS: Negative except as per HPI. HOME MEDICATIONS: Please see below. PHYSICAL EXAMINATION: VITAL SIGNS: See below General: NAD, lying comfortably in bed HEENT: NC/AT Lungs: CTA B/L Heart: +S1S2, RRR Abd: soft, NT, +BS Ext: no edema LABORATORY DATA: See below. MICROBIOLOGY: Please see below. A/P: 64 year old female for symptomatic COVID-19 infection, with past medical history including CAD/stents and COPD. #COVID-19 PNA with acute hypoxic respiratory failure - dexamethasone 6mg day #1 - remdesevir day #1 - abx given likely concomitant copd exacerbation - ceftriaxone/azithro day #1 - IS, inhalers, tessalon -f/u procalcitonin - serial inflammatory markers - supplemental oxygen to goal 88-92% - prophylactic dosing lovenox given ddimer<1000 - teds/sequentials #copd - as above, steroids, respiratory treatments, supplemental oxygen, IS, acapella - ceftriaxone/azithromycin day #1 for likely concomitant copd exacerbation #CAD - continue cardiac medications - plavix, lasix #DLP - continue rosuvastatin #DVT prophylaxis - Lovenox Vital Signs Vital Signs Date Time Temp Pulse Resp B/P (MAP) Pulse Ox O2 Delivery O2 Flow Rate FiO2 06/06/20 12:15 76 18 176/91 (119) 91 Room Air 06/06/20 11:00 2.0 06/06/20 10:20 99.4 Laboratory Data Labs 24H Laboratory Tests 2 06/06/20 11:17: Immature Granulocyte % (Auto) 0.5, Neutrophils (%) (Auto) 81.2H, Lymphocytes (%) (Auto) 8.9L, Monocytes (%) (Auto) 9.1H, Eosinophils (%) (Auto) 0.0, Basophils (%) (Auto) 0.3, Neutrophils # (Auto) 3.1, Lymphocytes # (Auto) 0.3L, Monocytes # (Auto) 0.4, Eosinophils # (Auto) 0.0, Basophils # (Auto) 0.0, Nucleated Red Blood Cells % (auto) 0.0, D-Dimer, Quantitative 1062.61H, Anion Gap 7L, Glomerular Filtration Rate > 60.0, Calcium Level 8.2L, Ferritin 345H, Total Bilirubin 0.5, Aspartate Amino Transf (AST/SGOT) 31, Alanine Aminotransferase (ALT/SGPT) 27, Alkaline Phosphatase 50, Lactate Dehydrogenase 341H, Troponin I 0.02, C-Reactive Protein, Quantitative 1.71H, Total Protein 6.4, Albumin 3.5, Albumin/Globulin Ratio 1.2 06/06/20 11:18: Lactic Acid Level 0.9 CBC/BMP Laboratory Tests 06/06/20 11:17 Home Medications Scheduled Ascorbic Acid (Ascorbic Acid) 500 Mg Tablet, 500 MG PO DAILY Clopidogrel Bisulfate (Plavix) 75 Mg Tab, 75 MG PO QHS Dexamethasone (Dexamethasone) 2 Mg Tablet, 2 MG PO DAILY Fluticasone/Vilanterol (Breo Ellipta 200-25 Mcg INH) 1 Inh Inh, 1 PUFF INH QHS Furosemide (Furosemide) 20 Mg Tab, 20 MG PO DAILY Guaifenesin (Mucinex) 1,200 Mg Tab.er.12h, 1,200 MG PO DAILY Montelukast Sodium (Montelukast Sodium) 10 Mg Tab, 10 MG PO QHS Rosuvastatin Calcium (Rosuvastatin Calcium) 10 Mg Tablet, 10 MG PO QHS Umeclidinium [place] (Incruse Ellipta) 62.5 Mcg/Inh Inh, 1 PUFF INH QHS Zinc (Zinc) 50 Mg Tablet, 1 TAB PO DAILY Scheduled PRN Albuterol Sulfate (Ventolin Hfa) 18 Gm Hfa.aer.ad, 2 PUFFS INH QID PRN for SOB/WHEEZING Amoxicillin/Potassium Clav (Augmentin 875-125 Tablet) 1 Each Tablet, 875 MG PO BID PRN for daily Ondansetron HCl (Ondansetron HCl) 4 Mg Tablet, 4 MG PO Q8H PRN for NAUSEA OR VOMITING Allergies Coded Allergies: TAPE (Verified Allergy, Intermediate, BANDAID - RASH, 08/08/16) aspirin (Verified Allergy, Intermediate, RASH, 07/13/19) bacitracin (Verified Allergy, Intermediate, RASH, 07/13/19) neomycin (Verified Allergy, Intermediate, RASH, 07/13/19) polymyxin B (Verified Allergy, Intermediate, RASH, 07/13/19) A-FIB/CHADSVASC A-FIB History Current/History of A-Fib/PAF?: No EDUARDO FRAGA MD Jun 06, 2020 13:51
[2020-06-06] MEDS ORDERED: ONDANSETRON 4 MG TAB PO PRN (14:00)
[2020-06-06] MEDS ORDERED: ALBUTEROL 90 MCG/ACT 8GM HFA INHALER INH PRN (14:00)
[2020-06-06] MEDS ORDERED: ACETAMINOPHEN TAB 650MG DOSE (2X325MG) PO ONE (14:15)
--- OUTSIDE RECORDS SUMMARY | 2020-06-06 14:22 | CCD ---
Author Author [facility] Organization [facility] Address Unknown Phone Unavailable Care Team Providers Care Handbell Choir Director Name Role Phone Beny, N Robbie CHEMICAL DEPENDENCY ATTENDANT Unavailable Unavailable Beny, N Robbie CHEMICAL DEPENDENCY ATTENDANT Unavailable Unavailable Beny, N Robbie CHEMICAL DEPENDENCY ATTENDANT Unavailable Unavailable Beny, N Robbie CHEMICAL DEPENDENCY ATTENDANT Unavailable Unavailable Beny, N Robbie CHEMICAL DEPENDENCY ATTENDANT Unavailable Unavailable Beny, N Robbie CHEMICAL DEPENDENCY ATTENDANT Unavailable Unavailable Beny, N Robbie CHEMICAL DEPENDENCY ATTENDANT Unavailable Unavailable Beny, N Robbie CHEMICAL DEPENDENCY ATTENDANT Unavailable Unavailable [place], N Robbie CHEMICAL DEPENDENCY ATTENDANT Unavailable Unavailable [place], N Robbie CHEMICAL DEPENDENCY ATTENDANT Unavailable Unavailable [place], N Robbie CHEMICAL DEPENDENCY ATTENDANT Unavailable Unavailable Beny, N Robbie CHEMICAL DEPENDENCY ATTENDANT Unavailable Unavailable Beny, N Robbie CHEMICAL DEPENDENCY ATTENDANT Unavailable Unavailable Beny, N Robbie CHEMICAL DEPENDENCY ATTENDANT Unavailable Unavailable Beny, N Robbie CHEMICAL DEPENDENCY ATTENDANT Unavailable Unavailable Beny, N Robbie CHEMICAL DEPENDENCY ATTENDANT Unavailable Unavailable [place]ym[place], N Robbie CHEMICAL DEPENDENCY ATTENDANT Unavailable Unavailable [place], N Robbie CHEMICAL DEPENDENCY ATTENDANT Unavailable Unavailable Wym[place], N Robbie CHEMICAL DEPENDENCY ATTENDANT Unavailable Unavailable [place], N Robbie CHEMICAL DEPENDENCY ATTENDANT Unavailable Unavailable Beny, N Robbie CHEMICAL DEPENDENCY ATTENDANT Unavailable Unavailable Beny, N Robbie CHEMICAL DEPENDENCY ATTENDANT Unavailable Unavailable Beny, N Robbie CHEMICAL DEPENDENCY ATTENDANT Unavailable Unavailable Beny, N Robbie CHEMICAL DEPENDENCY ATTENDANT Unavailable Unavailable [place], N Robbie CHEMICAL DEPENDENCY ATTENDANT Unavailable Unavailable Beny, N Robbie CHEMICAL DEPENDENCY ATTENDANT Unavailable Unavailable Wym[place], N Robbie CHEMICAL DEPENDENCY ATTENDANT Unavailable Unavailable Wym[place], N Robbie CHEMICAL DEPENDENCY ATTENDANT Unavailable Unavailable [place], N Robbie CHEMICAL DEPENDENCY ATTENDANT Unavailable Unavailable Beny, N Robbie CHEMICAL DEPENDENCY ATTENDANT Unavailable Unavailable Re-disclosure Warning The records that [...] is protected by Article 27-F of the [facility] Public Health law. If you continue you may have access to information: Regarding HIV / AIDS; Provided by facilities licensed or operated by the [facility] Office of Mental Health; or Provided by the [facility] Office for People With Developmental Disabilities. If such information is present, then the following [facility] mandated warning applies: This information has [...] law may result in a fine or penitentiary sentence or both. A general authorization for the release of medical or other information is NOT sufficient authorization for further disc losure. Allergies and Adverse Reactions Type Description Substance Reaction Status Data Source(s ) Environmental Environmental Environmental Unknown Active eCW1 ([facility]) Aspirin Aspirin Aspirin Hives Active eCW1 (Pending sale to [facility]) Neosporin Neosporin Neosporin Hives Active eCW1 (Pending sale to [facility]) Environmental Environmental Environmental Unknown Active eCW1 ([facility]) Neosporin Neosporin Neosporin Hives Active eCW1 (Pending sale to [facility]) Environmental Environmental Environmental Unknown Active eCW1 ([facility]) Neosporin Neosporin Neosporin Hives Active eCW1 (Pending sale to [facility]) Environmental Environmental Environmental Unknown Active eCW1 ([facility]) Neosporin Neosporin Neosporin Hives Active eCW1 (Pending sale to [facility]) Family History Family Member Name Family Member Gender Family Member Status Date o f Status Description Data Source(s) Unknown Unknown Problem MEDENT ([facility]) Unknown Male Problem MEDENT ([facility] Unknown Male Problem MEDENT ([facility]) () Unknown Male Problem MEDENT ([facility] () Unknown Male Problem MEDENT ([facility] ) Encounters Encounter Providers Location Date Indications Data Source(s ) Outpatient Attender: Robbie Swan NP [email or web address] [id number] 12:00:00 AM EDT - 11/15/2019 09:16:44 [place] [address] 06/27/2019 12:00:00 AM EST eCW1 ([facility]) [facility] [address] [place] [phone] 06/15/2019 12:00:00 AM EST eCW1 ([facility]) [facility] [address] [place] [phone] 06/15/2019 12:00:00 AM EST eCW1 ([facility]) [address] [phone] 06/07/2019 12:00:00 AM EST eCW1 ([facility]) [facility] [address] [place] [phone] 05/16/2019 12:00:00 AM EST eCW1 ([facility]) [facility] [address] [place] [address] 05/10/2019 12:00:00 AM EST eCW1 ([facility]) [facility] [address] [place] [address] 04/28/2019 12:00:00 AM EST eCW1 ([facility]) Immunizations Vaccine Date Status Description Data Source(s) [...] 12:00:00 AM EST active 1 tablet eCW1 ([facility]) Sulfamethoxazole 800 MG / Trimethoprim 1 60 MG Oral Tablet [Bactrim] Bactrim DS 800-160 MG Bactrim DS 800-160 MG 05/17/2019 12:00:00 AM EST suspended 1 tablet eCW1 (Pending sale to [facility]) Sulfamethoxazole 800 MG / Trimethoprim 1 60 MG Oral Tablet [Bactrim] Bactrim DS 800-160 MG Bactrim DS 800-160 MG 05/17/2019 12:00:00 AM EST suspended 1 tablet eCW1 (Pending sale to [facility]) 20 mg 05/12/2019 12:00:00 AM EST [...] type / Coverage type Policy ID Covered constitution party ID Covered constitution party's relationship to masters Policy Masters Plan Information [facility] [id number] SP [id number] UMR [id number] Marie [id number] UMR [facility] [id number] SP [id number] UMR CO [id number] 18 [id number] UMR -O/P [id number] 18 [id number] [employer] [id number] 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 [id number] [id number] Commercial Insur ance Co. [id number] Umr Commercial [id number] Self [id number] Umr Commercial [id number] Self [id number] [employer] Commercial [id number] Self [id number] Umr Commercial [id number] Self [id number] Umr Commercial [id number] Self [id number] ANSI-Commercial [id number] Umr Commercial [id number] Self [id number] Umr Commercial [id number] Self [id number] [employer] (HMO) [id number] Se lf [id number] [employer] BC [id number] 18 [id number] [employer]-O/P [id number] 18 [id number] [employer]-RECURRING [id number] 18 [id number] [employer] PPO O [id number] S [id number] [employer] [id number] Self [id number] [employer] [id number] SP [id number] [employer] (pr) Commercial [id number] Self [id number] [employer] (pr) Commercial [id number] Self [id number] [employer] [id number] Self [id number] [employer] (HMO) [id number] Se lf [id number] [employer] (pr) Commercial [id number] Self [id number] [employer] (HMO) [id number] Se lf [id number] [employer] (HMO) Se lf [employer] [id number] SP [id number] Problems, Conditions, and Diagnoses Code Display Name Description Problem Type Effective Dates Data Source(s) E78.5 Hyperlipidemia, unspecified Hyperlipidemia, unspecifie d Diagnosis 11/15/2019 08:50:37 AM EDT [facility] E78.00 Pure hypercholesterolemia, unspecified P ure hypercholesterolemia, unspecified Diagnosis 11/15/2019 08:50:37 AM EDT [facility] I10 Essential (primary) hypertension Essential (primary) h ypertension Diagnosis 11/15/2019 08:50:37 AM EDT [facility] Z98.61 Coronary angioplasty status Coronary angioplasty statu s Diagnosis 11/15/2019 08:50:37 AM EDT [facility] Surgeries/Procedures Procedure Description Date Indications Data Source(s) CYSTOSCOPY 06/15/2019 12:00:00 AM EST e CW1 ([facility]) URINE-NO MICRO 04/28/2019 12:00:00 AM EST eCW1 ([facility]) Results ID Date Data Source 184 05/29/2020 12:00:00 AM EST [facility] Name Value Range Interpretation Code Description Data Christina rce(s) Supporting Document(s) SARS-CoV2 Rapid Antigen Positive [facility] This lab was ordered by [facility] and reported by Scott Vallejo MD. ID Date Data Source NON STAFF EDUCATOR CYTOLOGY REQ FOR SERVI 05/10/2019 12:00:00 AM EST eC W1 ([facility]) Name Value Range Interpretation Code Description Data Christina rce(s) Supporting Document(s) URINE eCW1 (Pending sale to [facility]) Procedure Vital Signs ID Date Data Source UNK Name Value Range Interpretation Code Description Data Source(s) Diastolic blood pressure 66 mm[Hg] 66 mm[Hg] eCW1 ([facility]) Systolic blood pressure 122 mm[Hg] 122 mm[Hg] e CW1 ([facility]) Body mass index (BMI) [Ratio] 30.92 kg/m2 30.92 kg/m2 W1 ([facility]) Body height 61.25 [in_us] 61.25 [in_us] eCW1 ([facility]) Body weight Measured 165 [lb_av] 165 [lb_av] eC W1 ([facility]) Diastolic blood pressure 80 mm[Hg] 80 mm[Hg] eCW1 ([facility]) Systolic blood pressure 138 mm[Hg] 138 mm[Hg] e CW1 ([facility]) Body temperature 96.9 [degF] 96.9 [degF] eCW1 ( [facility]) Respiratory rate 18 /min 18 /min eCW1 ([facility]) Heart rate 78 /min 78 /min eCW1 ([facility]ending sale to [facility]) Body mass index (BMI) [Ratio] 310.69 kg/m2 310. 69 kg/m2 W1 ([facility]) Body height 61.25 [in_us] 61.25 [in_us] eCW1 ([facility]) Body weight Measured [lb_av] eCW1 ([facility]) Diastolic blood pressure 88 mm[Hg] 88 mm[Hg] eCW1 ([facility]) Systolic blood pressure 140 mm[Hg] 140 mm[Hg] e CW1 ([facility]) Body temperature 96.9 [degF] 96.9 [degF] eCW1 ( [facility]) Respiratory rate 18 /min 18 /min eCW1 ([facility]) Heart rate 67 /min 67 /min eCW1 (Pending sale to [facility]) Body mass index (BMI) [Ratio] 30.54 kg/m2 30.54 kg/m2 eCW1 ([facility]) Body height 61.25 [in_us] 61.25 [in_us] eCW1 ([facility]) Body weight Measured 163 [lb_av] 163 [lb_av] eC W1 ([facility]) Body weight 73.937 kg 73.937 kg MEDJUICE ([facility], ) Body mass index (BMI) [Ratio] 29.8 kg/m2 29.8 k g/m2 [facility], ) Body weight 163.00 [lb_av] 163.00 [lb_av] MEDEN T ([facility], ) Body height 62 [in_i] 62 [in_i] MEDJUICE ([facility], ) 5'2" Oxygen saturation in Arterial blood by Pulse oximetry 97 % 97 % [facility] ([facility], ) Room Air Heart rate 67 /min 67 /min MEDJUICE ([facility], ) Diastolic blood pressure 70 mm[Hg] 70 mm[Hg] MEDENT ([facility], ) Systolic blood pressure 122 mm[Hg] 122 mm[Hg] M EDENT ([facility], ) Diastolic blood pressure 74 mm[Hg] 74 mm[Hg] eCW1 ([facility]) Systolic blood pressure 124 mm[Hg] 124 mm[Hg] e CW1 ([facility]) Body mass index (BMI) [Ratio] 30.36 kg/m2 30.36 kg/m2 eCW1 ([facility]) Body height 61.25 [in_us] 61.25 [in_us] eCW1 ([facility]) Body weight Measured 162 [lb_av] 162 [lb_av] eC W1 ([facility]) Patient Treatment Plan of Care Planned Activity Planned Date Details Description Data Source (s) Sulfamethoxazole 800 MG / Trimethoprim 160 MG Oral Tab let [Bactrim] 05/17/2019 12:00:00 AM EST eCW1 (Pending sale to [facility])
[2020-06-06] MEDS ORDERED: cefTRIAXone SOD 1 GM in D5W MINI-BAG PLUS 50 ML IV SCH (14:30)
[2020-06-06] MEDS ORDERED: AZITHROMYCIN INJ 500 MG, VIAL MATE ADAPTER 1 EACH in D5W 250 ML IV SCH (15:00)
[2020-06-06 15:28] LABS: INR 0.98; PROTHROMBIN TIME 13.2 SECONDS (12.5-14.3)
[2020-06-06] MEDS: FUROSEMIDE 20 MG TAB PO SCH (15:59)
[2020-06-06] MEDS: dexameTHASONE 4 MG/ML 1ML VIAL (J1100 PER 1MG) IV SCH (15:59)
[2020-06-06 16:21] VITALS: BP 128/70
[2020-06-06] MEDS: guaiFENesin ER 600 MG TAB PO SCH (17:28)
[2020-06-06] MEDS: ENOXAPARIN 40MG/0.4ML SYRINGE (J1650 PER 10MG) SC SCH (17:28)
[2020-06-06 18:24] VITALS: O2SAT 95
[2020-06-06 19:05] LABS: CK-MB VALUE MASS 1.2 NG/ML (<3.6); MB/CK RELATIVE INDEX 1.25 (< OR =4); TROPONIN I 0.02 NG/ML (< 0.10)
[2020-06-06 20:00] VITALS: O2SAT 93
[2020-06-06] MEDS: ONDANSETRON 4MG/2ML VIAL IV SCH (20:38)
[2020-06-06] MEDS ORDERED: ROSUVASTATIN 10 MG TAB (CRESTOR) PO SCH (21:00)
[2020-06-06] MEDS ORDERED: MONTELUKAST 10 MG TAB PO SCH (21:00)
[2020-06-06] MEDS ORDERED: CLOPIDOGREL 75 MG TAB PO SCH (21:00)
[2020-06-06 23:17] VITALS: BP 136/74
[2020-06-07 00:11] VITALS: O2SAT 94
[2020-06-07] MEDS: ONDANSETRON 4MG/2ML VIAL IV SCH ×3 (03:00→10:36)
[2020-06-07 03:01] VITALS: BP 142/70
[2020-06-07 03:39] LABS: BASO % 0.5 % (0.0-1.0); HEMATOCRIT 40.3 % (36.0-47.0); HEMOGLOBIN 13.5 g/dl (12.0-15.5); LYMPH # 0.5 10^3/uL (1.5-5.0); LYMPH % 23.2 % (24.0-44.0); MEAN CORPUSCULAR HEMOGLOBIN 29.8 pg (27.0-33.0); MEAN CORPUSCULAR HGB CONC 33.5 g/dl (32.0-36.5); MONO # 0.3 10^3/uL (0.0-0.8); MONO % 14.3 % (0.0-5.0); NEUTROPHILS # 1.3 10^3/uL (1.5-8.5); NEUTROPHILS % 61.5 % (36.0-66.0); PLATELET COUNT, AUTOMATED 213 10^3/uL (150-450); RED BLOOD COUNT 4.53 10^6/uL (4.00-5.40)
[2020-06-07 04:00] VITALS: O2SAT 91
[2020-06-07 04:09] LABS: BLOOD UREA NITROGEN 12 MG/DL (7-18); CARBON DIOXIDE LEVEL 25 MEQ/L (21-32); CHLORIDE LEVEL 103 MEQ/L (98-107); CREATININE FOR GFR 0.66 MG/DL (0.55-1.30); GLOMERULAR FILTRATION RATE > 60.0 (>45); GLUCOSE, FASTING 119 MG/DL (70-100); MAGNESIUM LEVEL 2.1 MG/DL (1.8-2.4); POTASSIUM SERUM 3.7 MEQ/L (3.5-5.1); SODIUM LEVEL 138 MEQ/L (136-145)
--- NOTE | 2020-06-07 06:12 | ECGEPIP ---
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
--- NOTE | 2020-06-07 06:19 | ECGEPIP ---
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
[2020-06-07 08:00] VITALS: O2SAT 95
[2020-06-07] MEDS: TIOTROPIUM INHALER/CAPSULE (SPIRIVA) INH SCH (09:16)
[2020-06-07] MEDS: guaiFENesin ER 600 MG TAB PO SCH (10:30)
[2020-06-07] MEDS: FUROSEMIDE 20 MG TAB PO SCH (10:30)
[2020-06-07] MEDS: dexameTHASONE 4 MG/ML 1ML VIAL (J1100 PER 1MG) IV SCH (10:30)
[2020-06-07] MEDS: ENOXAPARIN 40MG/0.4ML SYRINGE (J1650 PER 10MG) SC SCH (10:31)
[2020-06-07] MEDS ORDERED: AUGM875T28 PO (11:16)
[2020-06-07] MEDS ORDERED: DEXA2TA PO (11:16)
[2020-06-07] MEDS ORDERED: VITA100T59 PO (11:16)
[2020-06-07] MEDS ORDERED: ZINC1TAB2 PO (11:16)
[2020-06-07] MEDS ORDERED: ASCO500T PO (11:31)
[2020-06-07 11:43] VITALS: BP 118/66
[2020-06-07 12:02] VITALS: O2SAT 92
--- NOTE | 2020-06-07 13:36 | DS.PDOC ---
Discharge Summary General Date of Admission Jun 06, 2020 at 13:38 Date of Discharge 06/07/20 Discharge Summary Chief complaints malaise, fatigue and nausea Final diagnosis Covid 19 infection History of present illness and Hospital course 64 year old female with PMHx including CAD/multiple stents, COPD and recent positive COVID test on 05/28/20. For the past nine days she has been experiencing waxing and waning nausea/vomiting/diarrhea with malaise and fatigue. Was not complaining of shortness of breath until today. On evaluation in the ED she was noted to desaturate to 86% on room air with ambulation. Denies chest pain, headaches, abdominal pain. The patient was admitted to the hospital. The patient has been doing well. Her inflammatory markers have been stable. The patient has been afebrile, saturating 95 on 1-2 L of nasal cannula. No indication for remdesivir. Home oxygen evaluation will be done and the scripts have been already written in case the patient qualifies. The patient will be sent home on 2 mg of eczematous on for the next 5 days along with Augmentin for the next 4 days and Ventolin inhalers. She also will be given supplementation of vitamin C and zinc. She has been advised in case her symptoms worsen, she should report back to the ER or call her PCP. She has been advised to continue taking all other medications which she is on including the medications for her CAD and P CI's. Maximal benefit from this inpatient stay has been obtained and to prevent any further nosocomial infection the patient will be discharged home. PHYSICAL EXAMINATION: General: The patient is awake, alert, oriented x3, sitting up in the bed in no apparent distress. Head and Neck Exam: Extraocular muscles intact. Pupils equally round and reactive to light. Mucous membranes are moist. Neck is supple. There is no jugular venous distention (JVD). Cardiovascular: S1 and S2, regular rate. Respiratory: Clear auscultation bilaterally Abdomen: Soft. Positive bowel sounds. Nontender. No organomegaly. Genitourinary: Deferred Musculoskeletal: Clubbing of the fingernails, no cyanosis was noted. Central Nervous System (CHAIN MACHINE OPERATOR): No focal deficit. Power is 5/5 in all extremities. Medictations. As per discharge reconciliation medication list Activity as tolerated Diet. 2 g sodium diet Follow-up appointments. PCP in 1 week. Condition on discharge. Patient is medically optimized for discharge Discharge disposition: Home Total time spent on this discharge including coordination of care, review of chart documentation and actual patient contact is around 35 minutes Vital Signs/I&Os Vital Signs Date Time Temp Pulse Resp B/P (MAP) Pulse Ox O2 Delivery O2 Flow Rate FiO2 06/07/20 12:02 92 Room Air 06/07/20 11:43 97.6 74 22 118/66 (83) 06/07/20 11:40 2.0 I&O- Last 24 Hours up to 6 AM 06/07/20 06:00 Intake Total 500 ml Output Total 0 ml Balance 500 ml Laboratory Data Labs 24H Laboratory Tests 2 06/06/20 15:05: Prothrombin Time 13.2, Prothromb Time International Ratio 0.98, Activated Partial Thromboplast Time 29.0, Fibrinogen 431, Magnesium Level 2.0, Total Creatine Kinase 67, CH-Wat-B-Type Natriuretic Peptide 1234H 06/06/20 18:05: Total Creatine Kinase 96, Creatine Kinase MB 1.2, Creatine Kinase MB Relative Index 1.25, Troponin I 0.02 06/07/20 03:32: Magnesium Level 2.1, Immature Granulocyte % (Auto) 0.5, Neutrophils (%) (Auto) 61.5, Lymphocytes (%) (Auto) 23.2L, Monocytes (%) (Auto) 14.3H, Eosinophils (%) (Auto) 0.0, Basophils (%) (Auto) 0.5, Neutrophils # (Auto) 1.3L, Lymphocytes # (Auto) 0.5L, Monocytes # (Auto) 0.3, Eosinophils # (Auto) 0.0, Basophils # (Auto) 0.0, Nucleated Red Blood Cells % (auto) 0.0, Anion Gap 10, Glomerular Filtration Rate > 60.0, Calcium Level 8.0L, Phosphorus Level 3.0 CBC/BMP Laboratory Tests 06/07/20 03:32 Microbiology Microbiology 06/06/20 Blood Culture, Received Pending 06/06/20 Blood Culture, Received Pending Discharge Medications Scheduled Ascorbic Acid (Ascorbic Acid) 500 Mg Tablet, 500 MG PO DAILY Clopidogrel Bisulfate (Plavix) 75 Mg Tab, 75 MG PO QHS, (Reported) Dexamethasone (Dexamethasone) 2 Mg Tablet, 2 MG PO DAILY Fluticasone/Vilanterol (Breo Ellipta 200-25 Mcg INH) 1 Inh Inh, 1 PUFF INH QHS, (Reported) Furosemide (Furosemide) 20 Mg Tab, 20 MG PO DAILY, (Reported) Guaifenesin (Mucinex) 1,200 Mg Tab.er.12h, 1,200 MG PO DAILY, (Reported) Montelukast Sodium (Montelukast Sodium) 10 Mg Tab, 10 MG PO QHS, (Reported) Rosuvastatin Calcium (Rosuvastatin Calcium) 10 Mg Tablet, 10 MG PO QHS, (Reported) Umeclidinium [place] (Incruse Ellipta) 62.5 Mcg/Inh Inh, 1 PUFF INH QHS, (Reported) Zinc (Zinc) 50 Mg Tablet, 1 TAB PO DAILY Scheduled PRN Albuterol Sulfate (Ventolin Hfa) 18 Gm Hfa.aer.ad, 2 PUFFS INH QID PRN for SOB/WHEEZING, (Reported) Amoxicillin/Potassium Clav (Augmentin 875-125 Tablet) 1 Each Tablet, 875 MG PO BID PRN for daily Ondansetron HCl (Ondansetron HCl) 4 Mg Tablet, 4 MG PO Q8H PRN for NAUSEA OR VOMITING, (Reported) Allergies Coded Allergies: TAPE (Verified Allergy, Intermediate, BANDAID - RASH, 08/08/16) aspirin (Verified Allergy, Intermediate, RASH, 07/13/19) bacitracin (Verified Allergy, Intermediate, RASH, 07/13/19) neomycin (Verified Allergy, Intermediate, RASH, 07/13/19) polymyxin B (Verified Allergy, Intermediate, RASH, 07/13/19) XUAN BAZAN MD Jun 07, 2020 13:36
== END 2020-06-07 15:52 | disposition home or self-care (01) | DRG 179 ==
LOC: M ED 10:00 → M ED INP 13:38 → M 4MAIN 16:41
PROVIDERS: ADMIT Internal Medicine; ATTEND Internal Medicine
DX: U07.1 COVID-19 (principal); I25.10 Atherosclerotic heart disease of native coronary artery without angina pectoris; Z95.2 Presence of prosthetic heart valve; J44.9 Chronic obstructive pulmonary disease, unspecified; Z79.899 Other long term (current) drug therapy; Z88.6 Allergy status to analgesic agent; Z88.8 Allergy status to other drugs, medicaments and biological substances

== ENCOUNTER → 2020-07-20 | Outpatient (CLI) | payer OTHER ==
[~2020-07-20] MED LIST changes: +ASCO500T PO; +AUGM875T28 PO; +DEXA2TA PO; +ISOVUE-370 76% 100ML VIAL As Ordered ONE; +MUCI1TAB16 PO; +ONDA-83 PO; +ROSU10TA6 PO; +VENTAER INH; +VITA100T59 PO; +ZINC1TAB2 PO
--- NOTE | 2020-07-20 12:13 | REP ---
INDICATION: COPD, R/O PE COMPARISON: 02/20/2014 TECHNIQUE: Axial contrast enhanced images from the thoracic inlet to the upper abdomen using pulmonary embolus technique with multiplanar re-formations. 75 ml Isovue 370 intravenous contrast material administered without complication. This CT examination was performed using the following dose reduction techniques: Automated exposure control, adjustment of mA and/or kv according to the patient's size, and use of iterative reconstruction technique. FINDINGS: Satisfactory enhancement of the pulmonary vasculature is achieved and no filling defects are identified to suggest pulmonary embolus. Further evaluation of the mediastinum demonstrates normal thoracic aorta, heart and pericardium. Lung stubbs demonstrate advanced emphysematous changes with scattered scarring there is a very small focal area of consolidation at the deep medial right sulcus likely atelectasis and relatively new compared to lung base images of 05/24/2019. No further consolidation, suspicious nodule or mass. No effusion. No pneumothorax. Tracheobronchial tree is patent. No adenopathy. IMPRESSION: No evidence for pulmonary embolus. Small focus of presumed atelectasis along the medial posterior right sulcus. <Electronically signed by Andrew Khan > 07/20/20 1325
== END ==
LOC: M RAD 11:15
PROVIDERS: ATTEND Internal Medicine Pulmonary Disease
DX: J44.9 Chronic obstructive pulmonary disease, unspecified (principal)
CPT/HCPCS: 71275; Q9967

== ENCOUNTER → 2020-07-25 | Outpatient (REF) | payer OTHER ==
[~2020-07-25] MED LIST changes: -ISOVUE-370 76% 100ML VIAL As Ordered ONE
[2020-07-25 18:29] LABS: APPEARANCE, URINE CLEAR (CLEAR); BACTERIA, URINE AUTO NEGATIVE (NEGATIVE); BILIRUBIN, URINE AUTO NEGATIVE (NEGATIVE); BLOOD, URINE BLOOD 1+ (NEGATIVE); COLOR, URINE YELLOW (YELLOW); GLUCOSE, URINE (UA) AUTO NEGATIVE (NEGATIVE); KETONE, URINE AUTO NEGATIVE (NEGATIVE); LEUKOCYTE ESTERASE, URINE AUTO TRACE (NEGATIVE); NITRITE, URINE AUTO NEGATIVE (NEGATIVE); PROTEIN, URINE AUTO NEGATIVE (NEGATIVE); RBC, URINE AUTO 1 /HPF (0-3); SPECIFIC GRAVITY URINE AUTO 1.011 (1.002-1.035); SQUAMOUS EPITHELIAL CELL UR AU 1 /HPF (0-6); UROBILINOGEN, URINE AUTO 0.2 mg/dL (0.0-2.0); WBC, URINE AUTO 0 /HPF (0-3)
== END ==
LOC: M SMT 17:08
PROVIDERS: ATTEND Nurse Practitioner Women's Health
DX: R31.21 Asymptomatic microscopic hematuria (principal)

== ENCOUNTER → 2020-08-01 | Outpatient (CLI) | payer OTHER ==
--- NOTE | 2020-08-01 14:08 | REPMRS ---
Patient History The patient states she had a clinical breast exam in July 2020. Family history of breast cancer at age 50 or over in maternal grandmother, breast cancer at age 65 in sister. No Hormone Replacement Therapy Digital Woman Screen Mammo: August 01, 2020 - Exam #: [id number] Bilateral CC and MLO view(s) were taken. Technologist: RT Vero Prior study comparison: April 28, 2019, bilateral digital woman screen mammo performed at [facility]. February 25, 2018, bilateral digital woman screen mammo performed at [facility]. February 24, 2017, digital woman screen mammo performed at [facility]. FINDINGS: There are scattered fibroglandular densities. The Volpara volumetric breast density category is:B. There has been no change in the appearance of the mammogram from the prior studies. There is a mild amount of scattered fibroglandular density which is fairly symmetric. There is no interval development of dominant mass, architectural distortion, or grouped microcalcification suggestive of malignancy. 3-D tomosynthesis shows no additional findings. Assessment: BI-RADS/ACR category 1 mammogram. Negative Mammogram. Recommendation Routine screening mammogram of both breasts in 1 year (for women over age 40). This patient's [facility] Lifetime Breast Cancer Risk is estimated at 10.9 %. This mammogram was interpreted with the aid of an FDA-approved computer-aided dectection system. Electronically Signed By: Willi Garcia MD 08/01/20 [id number]
== END ==
LOC: M WHC 13:04
PROVIDERS: ATTEND Nurse Practitioner Family
DX: Z12.31 Encounter for screening mammogram for malignant neoplasm of breast (principal)

== ENCOUNTER 2020-09-16 12:18 | Emergency (ER) | payer OTHER ==
[~2020-09-16] VITALS: Ht 157.5 cm; Wt 73.9 kg
[2020-09-16] MEDS ORDERED: ALBU20IN (12:42)
--- NOTE | 2020-09-16 13:16 | REP ---
INDICATION: CHEST PAIN COMPARISON: 06/06/2020 TECHNIQUE: Portable AP view of the chest FINDINGS: The mediastinum and cardiac silhouette are stable and within normal limits for portable technique. The lung stubbs demonstrate stable chronic changes without acute consolidation, effusion, or pneumothorax. Skeletal structures are intact. IMPRESSION: No acute cardiopulmonary process appreciated. <Electronically signed by Andrew Khan > 09/16/20 [id number]
[2020-09-16 13:19] LABS: BASO % 0.4 % (0.0-1.0); EOS # 0.2 10^3/uL (0.0-0.5); EOS % 3.9 % (0.0-3.0); HEMATOCRIT 41.7 % (36.0-47.0); HEMOGLOBIN 13.5 g/dl (12.0-15.5); LYMPH # 1.3 10^3/uL (1.5-5.0); MEAN CORPUSCULAR HEMOGLOBIN 30.3 pg (27.0-33.0); MEAN CORPUSCULAR HGB CONC 32.4 g/dl (32.0-36.5); MEAN CORPUSCULAR VOLUME 93.7 fl (80.0-96.0); MONO # 0.6 10^3/uL (0.0-0.8); MONO % 11.4 % (2.0-8.0); NEUTROPHILS # 3.2 10^3/uL (1.5-8.5); NEUTROPHILS % 58.7 % (36.0-66.0); PLATELET COUNT, AUTOMATED 275 10^3/uL (150-450); RED BLOOD COUNT 4.45 10^6/uL (4.00-5.40); WHITE BLOOD COUNT 5.4 10^3/uL (4.0-10.0)
[2020-09-16] MEDS ORDERED: ISOVUE-370 76% 100ML VIAL As Ordered ONE (13:40)
[2020-09-16 13:49] LABS: ALBUMIN 3.7 GM/DL (3.2-5.2); ALT/SGPT 21 U/L (12-78); BILIRUBIN,DIRECT 0.1 MG/DL (0.0-0.2); BILIRUBIN,TOTAL 0.5 MG/DL (0.2-1.0); CK-MB VALUE MASS < 1.0 NG/ML (<3.6); CPK CREATINE PHOSPHOKINASE 68 U/L (26-192); LIPASE 101 U/L (73-393); MB/CK RELATIVE INDEX 1.47 (< OR =4); NT-PRO BNP 247 PG/ML (<125); THYROID STIMULATING HORMONE 0.555 uIU/ML (0.358-3.740); TOTAL PROTEIN 7.7 GM/DL (6.4-8.2); TROPONIN I < 0.02 NG/ML (< 0.10)
--- NOTE | 2020-09-16 14:34 | REP ---
INDICATION: chest pain with SOB; r/o PE COMPARISON: 07/20/2020 TECHNIQUE: Axial contrast enhanced images from the thoracic inlet to the upper abdomen using pulmonary embolus technique with multiplanar re-formations. 75 ml Isovue 370 intravenous contrast material administered without complication. This CT examination was performed using the following dose reduction techniques: Automated exposure control, adjustment of mA and/or kv according to the patient's size, and use of iterative reconstruction technique. FINDINGS: Satisfactory enhancement of the pulmonary vasculature is achieved and no filling defects are identified to suggest pulmonary embolus. Further evaluation of the mediastinum demonstrates normal thoracic aorta, heart and pericardium. The lung stubbs again demonstrate advanced COPD/emphysematous changes. Focal area of atelectasis along the medial right lung base is again identified and appears slightly increased from prior examination. No further acute consolidation. No effusion or pneumothorax. No obvious adenopathy. Tracheobronchial tree is patent. IMPRESSION: No evidence for pulmonary embolus. Advanced COPD/emphysematous changes. Small focal area of opacity suggesting atelectasis in the medial right basilar sulcus which appears slightly increased in size when compared to 07/20/2020. Short-term follow-up is recommended. <Electronically signed by Andrew Khan > 09/16/20 2141
[2020-09-16] MEDS ORDERED: methylPREDNISolone 125MG 2ML VIAL IV ONE (14:55)
[2020-09-16] MEDS ORDERED: PRED10TA2 PO (14:59)
[2020-09-16 15:15] VITALS: BP 137/77
--- NOTE | 2020-09-16 19:39 | ECGEPIP ---
[facility] - ED Test Date: 2020-09-16 Pat Name: JOSE HALL Department: Room: - Gender: Female [employer]: MARIKA : 1955 Requested By: Claritza Abad Order Number: [id number] Reading MD: Claritza Abad Measurements Intervals [place] Rate: 87 P: 86 MI: 160 QRS: 57 QRSD: 114 T: 78 QT: 398 QTc: 478 Interpretive Statements Normal sinus rhythm Possible Inferior infarct , age undetermined low qrs voltage limb leads anteroseptal st t wave changes - rule out ischemla vs nonspecific cw 06/07/[address] t wave changes Electronically Signed on 09-16-2020 19:39:30 EDT by Claritza Abad
--- NOTE | 2020-09-17 06:49 | ED PDOC ---
Post-Departure Follow-Up dr acosta faxed formal report of cta chest for fu Claritza Jennings MD September 17, 2020 06:49
== END 2020-09-16 15:21 | disposition home or self-care (01) ==
LOC: M ED 12:18
DX: J44.1 Chronic obstructive pulmonary disease with (acute) exacerbation (principal); I25.2 Old myocardial infarction; E78.5 Hyperlipidemia, unspecified; Z88.6 Allergy status to analgesic agent; Z88.8 Allergy status to other drugs, medicaments and biological substances; Z79.899 Other long term (current) drug therapy; Z79.51 Long term (current) use of inhaled steroids
CPT/HCPCS: 71045; 71275; 80047; 80076; 82550; 82553; 83690; 83880; 84443; 84484; 85025; 93005; 93041; 94760; 96374; 99285; J2930; Q9967

== ENCOUNTER → 2021-05-21 | Outpatient (CLI) | payer OTHER ==
[~2021-05-21] MED LIST changes: +ALBU20IN; +OMEP40CA4 PO; -OMEP40CA97 PO; +PRED10TA2 PO
--- NOTE | 2021-05-21 19:10 | REPVR ---
PROCEDURE INFORMATION: Exam: MRA Neck Without Contrast Exam date and time: 05/21/2021 5:14 PM Age: 65 years old Clinical indication: Screening exam; Family HX of heart disease; Additional info: Family HX of ischemic heart disease and other disease of the circulation system TECHNIQUE: Imaging protocol: Magnetic resonance angiography of the neck without contrast. COMPARISON: CT ANGIO CHEST 09/16/2020 2:11 PM FINDINGS: Right common carotid artery: No significant stenosis or occlusion. Right internal carotid artery: Extracranial segment is patent without evidence of hemodynamically significant stenosis. Right external carotid artery: Unremarkable. Right vertebral artery: No significant stenosis or occlusion. Left common carotid artery: No significant stenosis or occlusion. Left internal carotid artery: Extracranial segment is patent without evidence of hemodynamically significant stenosis. Left external carotid artery: Unremarkable. Left vertebral artery: No significant stenosis or occlusion. IMPRESSION: No MRA evidence of occlusion or significant stenosis in the arteries of the neck. REFERENCES: NASCET CRITERIA. The degree of internal carotid artery stenosis is based on NASCET criteria. Normal is no stenosis. Mild is less than 50% stenosis. Moderate is 50-69% stenosis. Severe is 70% to 99% stenosis. Total occlusion is no detectable patent lumen. Electronically signed by: Wayne White On 05/21/2021 19:09:53 PM
--- NOTE | 2021-05-21 19:16 | REPVR ---
PROCEDURE INFORMATION: Exam: MRA Head Without Contrast; Arteriography Exam date and time: 05/21/2021 5:12 PM Age: 65 years old Clinical indication: Screening exam; Family HX; Additional info: Family HX of ischem heart disease and other diseases of the circulation system TECHNIQUE: Imaging protocol: Magnetic resonance angiography head without contrast. Exam focused on the arteries. COMPARISON: CT Maxilofacial w/out contrast 08/16/2014 9:14 AM FINDINGS: ANTERIOR CIRCULATION: Right internal carotid artery: Intracranial segment is patent with no significant stenosis. No aneurysm. Right middle cerebral artery: No occlusion or significant stenosis. No aneurysm. Right anterior cerebral artery: No occlusion or significant stenosis. No aneurysm. Left internal carotid artery: Intracranial segment is patent with no significant stenosis. No aneurysm. Left middle cerebral artery: Approximately 3.2 mm saccular aneurysm projecting superiorly from the left M1-M2 junction. Left MCA branches are patent. Left anterior cerebral artery: No occlusion or significant stenosis. No aneurysm. POSTERIOR CIRCULATION: Right vertebral artery: No occlusion or significant stenosis. No aneurysm. Left vertebral artery: No occlusion or significant stenosis. No aneurysm. Basilar artery: No occlusion or significant stenosis. No aneurysm. Right posterior cerebral artery: No occlusion or significant stenosis. No aneurysm. Left posterior cerebral artery: No occlusion or significant stenosis. No aneurysm. IMPRESSION: Approximately 3.2 mm saccular aneurysm projecting superiorly from the left M1-M2 junction. Recommend neurosurgery consultation. Electronically signed by: Wayne White On 05/21/2021 19:16:22 PM
== END ==
LOC: M RAD 15:30
PROVIDERS: ATTEND Physician Assistant
DX: I72.5 Aneurysm of other precerebral arteries (principal); Z82.49 Family history of ischemic heart disease and other diseases of the circulatory system

== ENCOUNTER → 2021-07-10 | Outpatient (CLI) | payer OTHER ==
[~2021-07-10] MED LIST changes: +LISI5TAB11 PO; -MONT10TA10 PO; +MONT10TA97 PO
== END ==
LOC: M LABSMTC 10:17
PROVIDERS: ATTEND Anesthesiology
DX: Z01.812 Encounter for preprocedural laboratory examination (principal); Z20.822 Contact with and (suspected) exposure to COVID-19

== ENCOUNTER 2021-07-15 12:39 | Day surgery (SDC) | payer OTHER ==
[~2021-07-15] VITALS: Ht 157.5 cm; Wt 75.7 kg
[~2021-07-15 12:39] MED LIST changes: +LIDOCAINE 2% 100MG/5ML SDV (FOR ANES.) As Ordered ONE; +NS 1,000 ML IV ONE; +propofoL 200 MG/20 ML VIAL As Ordered ONE
[2021-07-15 14:56] VITALS: BP 140/65
== END 2021-07-15 15:08 | disposition home or self-care (01) ==
LOC: M OPP 12:39
PROVIDERS: ATTEND Internal Medicine Gastroenterology
DX: K21.00 Gastro-esophageal reflux disease with esophagitis, without bleeding (principal); K44.9 Diaphragmatic hernia without obstruction or gangrene; K29.70 Gastritis, unspecified, without bleeding; R13.10 Dysphagia, unspecified; R12 Heartburn; Z86.19 Personal history of other infectious and parasitic diseases; Z86.74 Personal history of sudden cardiac arrest; Z79.899 Other long term (current) drug therapy; Z88.8 Allergy status to other drugs, medicaments and biological substances; Z91.048 Other nonmedicinal substance allergy status; Z87.891 Personal history of nicotine dependence

== ENCOUNTER → 2021-07-29 | Outpatient (REF) | payer OTHER ==
[~2021-07-29] MED LIST changes: -LIDOCAINE 2% 100MG/5ML SDV (FOR ANES.) As Ordered ONE; -NS 1,000 ML IV ONE; -propofoL 200 MG/20 ML VIAL As Ordered ONE
[2021-07-29 18:04] LABS: APPEARANCE, URINE CLEAR (CLEAR); BACTERIA, URINE AUTO NEGATIVE (NEGATIVE); BILIRUBIN, URINE AUTO NEGATIVE (NEGATIVE); BLOOD, URINE BLOOD 1+ (NEGATIVE); COLOR, URINE YELLOW (YELLOW); GLUCOSE, URINE (UA) AUTO NEGATIVE (NEGATIVE); KETONE, URINE AUTO NEGATIVE (NEGATIVE); LEUKOCYTE ESTERASE, URINE AUTO TRACE (NEGATIVE); NITRITE, URINE AUTO NEGATIVE (NEGATIVE); PROTEIN, URINE AUTO NEGATIVE (NEGATIVE); RBC, URINE AUTO 4 /HPF (0-3); SPECIFIC GRAVITY URINE AUTO 1.011 (1.002-1.035); SQUAMOUS EPITHELIAL CELL UR AU 2 /HPF (0-6); UROBILINOGEN, URINE AUTO 0.2 mg/dL (0.0-2.0); WBC, URINE AUTO 1 /HPF (0-3)
== END ==
LOC: M SMT 16:30
PROVIDERS: ATTEND Nurse Practitioner Women's Health
DX: R31.21 Asymptomatic microscopic hematuria (principal)

== ENCOUNTER → 2021-09-20 | Outpatient (CLI) | payer OTHER | LOC: M RAD 14:51 | PROVIDERS: ATTEND Internal Medicine Pulmonary Disease | DX: Z87.891 Personal history of nicotine dependence (principal) ==

== ENCOUNTER → 2022-06-13 | Outpatient (CLI) | payer OTHER ==
[~2022-06-13] MED LIST changes: +ALBU6.7H6 INH; +CLOP75TA99 PO; -PLAV1TAB2 PO; -PROV108A INH
== END ==
LOC: M WHC 13:59
PROVIDERS: ATTEND Advanced Practice Midwife
DX: Z12.31 Encounter for screening mammogram for malignant neoplasm of breast (principal)

== ENCOUNTER 2022-08-25 14:05 | Emergency (ER) | payer OTHER ==
[~2022-08-25] VITALS: Ht 157.5 cm; Wt 74.8 kg
[~2022-08-25 14:05] MED LIST changes: -ALBU20IN; +ALBU5SOL7
[2022-08-25] MEDS ORDERED: methylPREDNISolone 125MG 2ML VIAL IV ONE (14:50)
[2022-08-25 15:13] LABS: VENOUS BASE EXCESS -4.2 (-2.0-2.0); VENOUS HCO3 19.6 MEQ/L (23.0-27.0); VENOUS O2 SATURATION 97.3 % (60.0-80.0); VENOUS PARTIAL PRESSURE CO2 32.7 mmHg (38.0-50.0); VENOUS PARTIAL PRESSURE O2 99.1 mmHg (30.0-50.0); VENOUS PH 7.396 UNITS (7.330-7.430); VENOUS TOTAL CO2 20.6 MEQ/L (24.0-28.0)
[2022-08-25 15:17] LABS: BASO % 0.2 % (0.0-1.0); HEMATOCRIT 42.5 % (36.0-47.0); LYMPH # 0.4 10^3/uL (1.5-5.0); LYMPH % 6.2 % (24.0-44.0); MEAN CORPUSCULAR HGB CONC 32.9 g/dl (32.0-36.5); MEAN CORPUSCULAR VOLUME 94.2 fl (80.0-96.0); MONO # 0.2 10^3/uL (0.0-0.8); MONO % 2.6 % (2.0-8.0); NEUTROPHILS % 90.7 % (36.0-66.0); PLATELET COUNT, AUTOMATED 270 10^3/uL (150-450); RED BLOOD COUNT 4.51 10^6/uL (4.00-5.40); WHITE BLOOD COUNT 6.6 10^3/uL (4.0-10.0)
[2022-08-25 15:43] LABS: ALBUMIN 3.8 G/DL (3.2-5.2); ALKALINE PHOSPHATASE 67 U/L (46-116); ALT/SGPT 23 U/L (7.0-40); AST/SGOT 23 U/L (<34); BILIRUBIN,DIRECT < 0.1 MG/DL (<0.4); BILIRUBIN,TOTAL 0.3 MG/DL (0.3-1.2); BLOOD UREA NITROGEN 19 MG/DL (9-23); CALCIUM LEVEL 9.2 MG/DL (8.3-10.6); CARBON DIOXIDE LEVEL 24 MMOL/L (20-31); CHLORIDE LEVEL 105 MMOL/L (98-107); CREATININE FOR GFR 1.09 MG/DL (0.55-1.30); GLOMERULAR FILTRATION RATE 53.8 (>45); GLUCOSE, FASTING 132 MG/DL (74-106); SODIUM LEVEL 140 MMOL/L (136-145); TOTAL PROTEIN 6.6 G/DL (5.7-8.2)
[2022-08-25] MEDS: IPRATROPIUM 0.5MG/ALBUTEROL 2.5MG INH SOL UD 3ML (DUONEB) NEB SCH ×3 (15:44→16:22)
[2022-08-25] MEDS ORDERED: ISOVUE-370 76% 100ML VIAL As Ordered ONE (16:28)
[2022-08-25 17:15] VITALS: BP 121/59
[2022-08-25] MEDS ORDERED: PRED10TA2 PO (18:07)
== END 2022-08-25 18:40 | disposition home or self-care (01) ==
LOC: M ED 14:05
DX: J44.0 Chronic obstructive pulmonary disease with (acute) lower respiratory infection (principal); R06.2 Wheezing; I25.10 Atherosclerotic heart disease of native coronary artery without angina pectoris; I25.2 Old myocardial infarction; E78.5 Hyperlipidemia, unspecified; Z87.891 Personal history of nicotine dependence; Z88.6 Allergy status to analgesic agent; Z88.8 Allergy status to other drugs, medicaments and biological substances; Z88.1 Allergy status to other antibiotic agents; Z79.899 Other long term (current) drug therapy
CPT/HCPCS: 71045; 71275; 80048; 80076; 82803; 83880; 84484; 85025; 87040; 87486; 87581; 87633; 87798; 93005; 94640; 94760; 96374; 99285; J2930; Q9967

== ENCOUNTER 2022-09-05 14:15 | Emergency (ER) | payer OTHER ==
[~2022-09-05] VITALS: Ht 157.5 cm; Wt 73.0 kg
[2022-09-05 15:16] LABS: BASO % 0.2 % (0.0-1.0); EOS # 0.1 10^3/uL (0.0-0.5); EOS % 0.4 % (0.0-3.0); HEMATOCRIT 46.1 % (36.0-47.0); HEMOGLOBIN 15.4 g/dl (12.0-15.5); LYMPH # 2.8 10^3/uL (1.5-5.0); LYMPH % 19.6 % (24.0-44.0); MEAN CORPUSCULAR HEMOGLOBIN 31.3 pg (27.0-33.0); MEAN CORPUSCULAR HGB CONC 33.4 g/dl (32.0-36.5); MEAN CORPUSCULAR VOLUME 93.7 fl (80.0-96.0); MONO # 0.7 10^3/uL (0.0-0.8); MONO % 5.2 % (2.0-8.0); NEUTROPHILS # 10.5 10^3/uL (1.5-8.5); NEUTROPHILS % 73.9 % (36.0-66.0); PLATELET COUNT, AUTOMATED 317 10^3/uL (150-450); RED BLOOD COUNT 4.92 10^6/uL (4.00-5.40); WHITE BLOOD COUNT 14.2 10^3/uL (4.0-10.0)
[2022-09-05 15:41] LABS: BILIRUBIN,DIRECT 0.1 MG/DL (<0.4); BILIRUBIN,TOTAL 0.5 MG/DL (0.3-1.2); CALCIUM LEVEL 8.6 MG/DL (8.3-10.6); CREATININE FOR GFR 1.09 MG/DL (0.55-1.30); GLOMERULAR FILTRATION RATE 53.8 (>45); POTASSIUM SERUM 3.3 MMOL/L (3.5-5.1); TOTAL PROTEIN 6.5 G/DL (5.7-8.2)
[2022-09-05] MEDS ORDERED: ISOVUE-370 76% 100ML VIAL As Ordered ONE (16:10)
[2022-09-05 18:16] VITALS: BP 116/72
== END 2022-09-05 18:31 | disposition home or self-care (01) ==
LOC: M ED 14:15
DX: R55 Syncope and collapse (principal); R14.0 Abdominal distension (gaseous); I25.2 Old myocardial infarction; J44.9 Chronic obstructive pulmonary disease, unspecified; I10 Essential (primary) hypertension; E78.5 Hyperlipidemia, unspecified; Z86.79 Personal history of other diseases of the circulatory system; Z87.891 Personal history of nicotine dependence; Z88.1 Allergy status to other antibiotic agents; Z88.6 Allergy status to analgesic agent; Z91.048 Other nonmedicinal substance allergy status; Z79.52 Long term (current) use of systemic steroids; Z79.811 Long term (current) use of aromatase inhibitors; Z79.899 Other long term (current) drug therapy
CPT/HCPCS: 36415; 70450; 72125; 74177; 80048; 80076; 83690; 84484; 85025; 93005; 93041; 94760; 99285; Q9967

== ENCOUNTER → 2022-11-28 | Outpatient (REF) | payer OTHER, MEDICARE ==
[2022-11-28 17:34] LABS: APPEARANCE, URINE HAZY (CLEAR); BACTERIA, URINE AUTO NEGATIVE (NEGATIVE); BILIRUBIN, URINE AUTO NEGATIVE (NEGATIVE); BLOOD, URINE BLOOD 1+ (NEGATIVE); COLOR, URINE YELLOW (YELLOW); GLUCOSE, URINE (UA) AUTO NEGATIVE (NEGATIVE); KETONE, URINE AUTO NEGATIVE (NEGATIVE); LEUKOCYTE ESTERASE, URINE AUTO 1+ (NEGATIVE); NITRITE, URINE AUTO NEGATIVE (NEGATIVE); PROTEIN, URINE AUTO NEGATIVE (NEGATIVE); RBC, URINE AUTO 1 /HPF (0-3); SPECIFIC GRAVITY URINE AUTO 1.012 (1.002-1.035); SQUAMOUS EPITHELIAL CELL UR AU 5 /HPF (0-6); UROBILINOGEN, URINE AUTO 0.2 mg/dL (0.0-2.0); WBC, URINE AUTO 4 /HPF (0-3)
== END ==
LOC: M SMT 17:06
PROVIDERS: ATTEND Physician Assistant
DX: R31.21 Asymptomatic microscopic hematuria (principal)

== ENCOUNTER → 2023-07-03 | Outpatient (CLI) | payer MEDICARE, OTHER ==
[~2023-07-03] MED LIST changes: -ROSU10TA6 PO; +ROSU10TA61 PO
== END ==
LOC: M WHC 14:01
PROVIDERS: ATTEND Advanced Practice Midwife
DX: Z12.31 Encounter for screening mammogram for malignant neoplasm of breast (principal); M85.80 Other specified disorders of bone density and structure, unspecified site

== ENCOUNTER → 2023-07-18 | Outpatient (REF) | payer MEDICARE, OTHER ==
[~2023-07-18] MED LIST changes: +ROSU10TA6 PO; -ROSU10TA61 PO
[2023-07-18 18:57] LABS: APPEARANCE, URINE CLEAR (CLEAR); BACTERIA, URINE AUTO 1+ (NEGATIVE); BILIRUBIN, URINE AUTO NEGATIVE (NEGATIVE); BLOOD, URINE BLOOD 1+ (NEGATIVE); COLOR, URINE STRAW (YELLOW); GLUCOSE, URINE (UA) AUTO NEGATIVE (NEGATIVE); KETONE, URINE AUTO NEGATIVE (NEGATIVE); LEUKOCYTE ESTERASE, URINE AUTO 2+ (NEGATIVE); MUCUS, URINE SMALL (NEGATIVE); NITRITE, URINE AUTO NEGATIVE (NEGATIVE); PROTEIN, URINE AUTO NEGATIVE (NEGATIVE); RBC, URINE AUTO 3 /HPF (0-3); SPECIFIC GRAVITY URINE AUTO 1.003 (1.002-1.035); SQUAMOUS EPITHELIAL CELL UR AU 1 /HPF (0-6); UROBILINOGEN, URINE AUTO 0.2 mg/dL (0.0-2.0); WBC, URINE AUTO 22 /HPF (0-3)
== END ==
LOC: M LAB REF 18:14
PROVIDERS: ATTEND Physician Assistant Medical
DX: N39.0 Urinary tract infection, site not specified (principal); B96.20 Unspecified Escherichia coli [E. coli] as the cause of diseases classified elsewhere

== ENCOUNTER → 2023-08-05 | Outpatient (CLI) | payer MEDICARE, OTHER ==
[2023-08-05 10:49] LABS: BASO % 0.5 % (0.0-1.0); EOS # 0.1 10^3/uL (0.0-0.5); EOS % 2.3 % (0.0-3.0); HEMATOCRIT 43.2 % (36.0-47.0); HEMOGLOBIN 14.2 g/dl (12.0-15.5); LYMPH # 1.4 10^3/uL (1.5-5.0); LYMPH % 32.3 % (24.0-44.0); MEAN CORPUSCULAR HEMOGLOBIN 31.1 pg (27.0-33.0); MEAN CORPUSCULAR HGB CONC 32.9 g/dl (32.0-36.5); MEAN CORPUSCULAR VOLUME 94.7 fl (80.0-96.0); MONO # 0.4 10^3/uL (0.0-0.8); MONO % 9.8 % (2.0-8.0); NEUTROPHILS # 2.4 10^3/uL (1.5-8.5); NEUTROPHILS % 54.9 % (36.0-66.0); PLATELET COUNT, AUTOMATED 230 10^3/uL (150-450); RED BLOOD COUNT 4.56 10^6/uL (4.00-5.40); WHITE BLOOD COUNT 4.4 10^3/uL (4.0-10.0)
[2023-08-05 10:51] LABS: ALKALINE PHOSPHATASE 73 U/L (46-116); ALT/SGPT 30 U/L (7.0-40); AST/SGOT 26 U/L (<34); BILIRUBIN,TOTAL 0.5 MG/DL (0.3-1.2); BLOOD UREA NITROGEN 19 MG/DL (9-23); CARBON DIOXIDE LEVEL 31 MMOL/L (20-31); CHLORIDE LEVEL 109 MMOL/L (98-107); CREATININE FOR GFR 0.78 MG/DL (0.55-1.30); GLOMERULAR FILTRATION RATE > 60.0 (>45); GLUCOSE, FASTING 100 MG/DL (74-106); POTASSIUM SERUM 4.4 MMOL/L (3.5-5.1); SODIUM LEVEL 143 MMOL/L (136-145); TOTAL PROTEIN 6.3 G/DL (5.7-8.2)
== END ==
LOC: M PLALAB 08:01
PROVIDERS: ATTEND Physician Assistant
DX: I10 Essential (primary) hypertension (principal)

== ENCOUNTER → 2023-10-28 | Outpatient (CLI) | payer MEDICARE, OTHER ==
[~2023-10-28] MED LIST changes: +ONDA-282 PO; -ONDA4TAB6 PO; -ROSU10TA6 PO; +ROSU10TA61 PO
== END ==
LOC: M RAD 16:26
PROVIDERS: ATTEND Internal Medicine Pulmonary Disease
DX: Z87.891 Personal history of nicotine dependence (principal)

== ENCOUNTER → 2023-12-04 | Outpatient (REF) | payer MEDICARE, OTHER ==
[2023-12-04 17:41] LABS: APPEARANCE, URINE CLEAR (CLEAR); BACTERIA, URINE AUTO 1+ (NEGATIVE); BILIRUBIN, URINE AUTO NEGATIVE (NEGATIVE); BLOOD, URINE BLOOD 1+ (NEGATIVE); COLOR, URINE YELLOW (YELLOW); GLUCOSE, URINE (UA) AUTO NEGATIVE (NEGATIVE); KETONE, URINE AUTO NEGATIVE (NEGATIVE); LEUKOCYTE ESTERASE, URINE AUTO TRACE (NEGATIVE); NITRITE, URINE AUTO NEGATIVE (NEGATIVE); PROTEIN, URINE AUTO NEGATIVE (NEGATIVE); RBC, URINE AUTO 1 /HPF (0-3); SPECIFIC GRAVITY URINE AUTO 1.006 (1.002-1.035); SQUAMOUS EPITHELIAL CELL UR AU 2 /HPF (0-6); UROBILINOGEN, URINE AUTO 0.2 mg/dL (0.0-2.0); WBC, URINE AUTO 3 /HPF (0-3)
== END ==
LOC: M SMT 17:02
PROVIDERS: ATTEND Physician Assistant
DX: R31.21 Asymptomatic microscopic hematuria (principal)

== ENCOUNTER → 2023-12-24 | Outpatient (CLI) | payer MEDICARE, OTHER | LOC: M PLARAD 08:42 | PROVIDERS: ATTEND Physician Assistant | DX: I67.1 Cerebral aneurysm, nonruptured (principal) ==

== ENCOUNTER → 2024-02-11 | Outpatient (CLI) | payer MEDICARE, OTHER | LOC: M PLAIMG 11:17 | PROVIDERS: ATTEND Internal Medicine Pulmonary Disease | DX: R91.8 Other nonspecific abnormal finding of lung field (principal) ==

== ENCOUNTER → 2024-03-21 | Outpatient (CLI) | payer MEDICARE, OTHER | LOC: M PLARAD 08:10 | PROVIDERS: ATTEND Internal Medicine Pulmonary Disease | DX: R91.8 Other nonspecific abnormal finding of lung field (principal) | CPT/HCPCS: 78815; A9552 ==

== ENCOUNTER 2024-07-23 10:59 | Observation (INO) | payer MEDICARE, OTHER ==
[~2024-07-23] VITALS: Ht 157.5 cm; Wt 75.1 kg
[~2024-07-23 10:59] MED LIST changes: -ADV250INH INH; +ADVA1AER9 INH
[2024-07-23] MEDS ORDERED: PANT20TA6 PO (11:19)
[2024-07-23] MEDS ORDERED: SPIR12.9 INH (11:19)
[2024-07-23] MEDS ORDERED: EZET10TA21 PO (11:19)
[2024-07-23] MEDS ORDERED: CEFU1TAB22 PO (11:19)
[2024-07-23 12:09] LABS: VENOUS BASE EXCESS -1.4 (-2.0-2.0); VENOUS HCO3 22.2 MMOL/L (23.0-27.0); VENOUS O2 SATURATION 96.9 % (60.0-80.0); VENOUS PARTIAL PRESSURE CO2 34.1 mmHg (38.0-50.0); VENOUS PARTIAL PRESSURE O2 88.9 mmHg (30.0-50.0); VENOUS PH 7.431 UNITS (7.330-7.430); VENOUS STANDARD HCO3 23.3 MMOL/L; VENOUS TOTAL CO2 23.2 MMOL/L (24.0-28.0)
[2024-07-23 12:14] LABS: BASO % 0.1 % (0.0-1.0); EOS % 0.1 % (0.0-3.0); HEMATOCRIT 41.1 % (36.0-47.0); HEMOGLOBIN 13.5 g/dl (12.0-15.5); LYMPH # 0.6 10^3/uL (1.5-5.0); LYMPH % 7.1 % (24.0-44.0); MEAN CORPUSCULAR HEMOGLOBIN 31.1 pg (27.0-33.0); MEAN CORPUSCULAR HGB CONC 32.8 g/dl (32.0-36.5); MEAN CORPUSCULAR VOLUME 94.7 fl (80.0-96.0); MONO # 0.5 10^3/uL (0.0-0.8); MONO % 5.6 % (2.0-8.0); NEUTROPHILS # 7.2 10^3/uL (1.5-8.5); NEUTROPHILS % 86.6 % (36.0-66.0); PLATELET COUNT, AUTOMATED 218 10^3/uL (150-450); RED BLOOD COUNT 4.34 10^6/uL (4.00-5.40); WHITE BLOOD COUNT 8.3 10^3/uL (4.0-10.0)
[2024-07-23 12:42] LABS: ALBUMIN 3.6 G/DL (3.2-5.2); ALKALINE PHOSPHATASE 60 U/L (35-104); ALT/SGPT 37 U/L (7.0-40); AST/SGOT 30 U/L (<34); BILIRUBIN,DIRECT 0.1 MG/DL (<0.4); BILIRUBIN,TOTAL 0.4 MG/DL (0.3-1.2); BLOOD UREA NITROGEN 10 MG/DL (9-23); CALCIUM LEVEL 8.8 MG/DL (8.3-10.6); CARBON DIOXIDE LEVEL 24 MMOL/L (20-31); CHLORIDE LEVEL 110 MMOL/L (98-107); CREATININE FOR GFR 0.72 MG/DL (0.55-1.30); GLOMERULAR FILTRATION RATE > 60.0 (>45); GLUCOSE, FASTING 101 MG/DL (74-106); POTASSIUM SERUM 4.2 MMOL/L (3.5-5.1); SODIUM LEVEL 145 MMOL/L (136-145); TOTAL PROTEIN 6.5 G/DL (5.7-8.2)
[2024-07-23] MEDS: IPRATROPIUM 0.5MG/ALBUTEROL 2.5MG INH SOL UD 3ML (DUONEB) NEB PRN (13:18)
[2024-07-23] MEDS: OSELTAMIVIR PHOSPHATE 75 MG CAP PO ONE (14:16)
[2024-07-23] MEDS: methylPREDNISolone 40MG 1ML VIAL IV ONE (14:30)
[2024-07-23] MEDS ORDERED: MOME50SP2 NARES (15:10)
[2024-07-23] MEDS ORDERED: HOME MED LIST COMPLETE! XX SCH (15:10)
[2024-07-23] MEDS ORDERED: ROSU20TA86 PO (15:10)
[2024-07-23] MEDS ORDERED: PRED10TA2 PO (15:10)
[2024-07-23] MEDS ORDERED: AZIT-10 PO (15:10)
[2024-07-23] MEDS ORDERED: ACETAMINOPHEN 325 MG TAB PO PRN (16:15)
[2024-07-23] MEDS ORDERED: guaiFENesin ER TABLET 600 MG TAB PO PRN (16:20)
[2024-07-23] MEDS: TIOTROPIUM INHALER/CAPSULE (SPIRIVA) INH SCH (16:58)
[2024-07-23] MEDS: ALBUTEROL SULFATE 2.5MG/0.5ML INH NEB SOLN NEB SCH (17:01)
[2024-07-23] MEDS: FUROSEMIDE 20 MG TAB PO SCH (17:45)
[2024-07-23] MEDS: PANTOPRAZOLE 20 MG TAB PO SCH (17:45)
[2024-07-23] MEDS: ADVAIR HFA 230/21MCG INHALER INH SCH (19:05)
[2024-07-23] MEDS ORDERED: SYMBICORT 160/4.5MCG INHALER 6GM INH SCH (20:00)
[2024-07-23] MEDS: methylPREDNISolone 40MG 1ML VIAL IV SCH (20:11)
[2024-07-23] MEDS: ROSUVASTATIN 10 MG TAB (CRESTOR) PO SCH (20:11)
[2024-07-23 20:12] VITALS: BP 165/87
[2024-07-23] MEDS: CLOPIDOGREL 75 MG TAB PO SCH (20:12)
[2024-07-23] MEDS: OSELTAMIVIR PHOSPHATE 75 MG CAP PO SCH (20:12)
[2024-07-23] MEDS: lisinopriL 5 MG TAB PO SCH (20:12)
[2024-07-23] MEDS: MONTELUKAST 10 MG TAB PO SCH (20:13)
[2024-07-23 21:10] VITALS: BP 168/86; TEMP 99.3; O2SAT 95
[2024-07-23] MEDS: CEFUROXIME 500 MG TAB PO SCH (22:21)
[2024-07-23] MEDS: FLUTICASONE PROP 0.05% NASAL SPRAY 16 GM (FLONASE) NARES SCH (22:21)
[2024-07-23] MEDS: EZETIMIBE 10MG TABLET (ZETIA) PO SCH (22:21)
[2024-07-23 23:48] VITALS: BP 120/55; TEMP 98.3; O2SAT 90
[2024-07-24 04:16] VITALS: BP 100/61; TEMP 97.4; O2SAT 91
[2024-07-24 07:29] VITALS: BP 139/62; TEMP 98.2; O2SAT 94
[2024-07-24 08:03] LABS: HEMATOCRIT 41.4 % (36.0-47.0); HEMOGLOBIN 13.9 g/dl (12.0-15.5); MEAN CORPUSCULAR HEMOGLOBIN 31.7 pg (27.0-33.0); MEAN CORPUSCULAR HGB CONC 33.6 g/dl (32.0-36.5); MEAN CORPUSCULAR VOLUME 94.5 fl (80.0-96.0); PLATELET COUNT, AUTOMATED 227 10^3/uL (150-450); RED BLOOD COUNT 4.38 10^6/uL (4.00-5.40)
[2024-07-24 08:24] LABS: BLOOD UREA NITROGEN 16 MG/DL (9-23); CARBON DIOXIDE LEVEL 26 MMOL/L (20-31); CHLORIDE LEVEL 104 MMOL/L (98-107); CREATININE FOR GFR 0.76 MG/DL (0.55-1.30); GLOMERULAR FILTRATION RATE > 60.0 (>45); GLUCOSE, FASTING 142 MG/DL (74-106); POTASSIUM SERUM 4.2 MMOL/L (3.5-5.1); SODIUM LEVEL 141 MMOL/L (136-145)
[2024-07-24 11:59] VITALS: BP 145/74; TEMP 98.3; O2SAT 93
[2024-07-24] MEDS ORDERED: PRED10TA2 PO (12:14)
[2024-07-24] MEDS ORDERED: OSEL75CA2 PO (12:14)
[2024-07-25] MEDS ORDERED: AZITHROMYCIN 250MG TABLET PO SCH (09:00)
== END 2024-07-24 13:53 | disposition home or self-care (01) ==
LOC: M ED 10:59 → M ED INP 11:00 → M PCU 21:06
PROVIDERS: ADMIT Student in an Organized Health Care Education/Training Program; ATTEND Student in an Organized Health Care Education/Training Program
DX: J44.1 Chronic obstructive pulmonary disease with (acute) exacerbation (principal); J09.X2 Influenza due to identified novel influenza A virus with other respiratory manifestations; J96.01 Acute respiratory failure with hypoxia; I25.10 Atherosclerotic heart disease of native coronary artery without angina pectoris; E78.5 Hyperlipidemia, unspecified; R60.0 Localized edema; I10 Essential (primary) hypertension; K21.9 Gastro-esophageal reflux disease without esophagitis; Z79.2 Long term (current) use of antibiotics; Z79.52 Long term (current) use of systemic steroids; Z79.899 Other long term (current) drug therapy
CPT/HCPCS: 36415; 71045; 80048; 80076; 82803; 83605; 83880; 84484; 85025; 85027; 85379; 87040; 87486; 87581; 87633; 87798; 93005; 93041; 94640; 94760; 96374; 96376; 99285; G0378; J2919

== ENCOUNTER → 2024-08-11 | Outpatient (CLI) | payer MEDICARE, OTHER ==
[~2024-08-11] MED LIST changes: +AZIT-10 PO; +CEFU1TAB22 PO; +EZET10TA21 PO; +MOME50SP2 NARES; +OSEL75CA2 PO; +PANT20TA6 PO; +ROSU20TA86 PO; +SPIR12.9 INH
== END ==
LOC: M PLAIMG 09:16
PROVIDERS: ATTEND Internal Medicine Pulmonary Disease
DX: R91.1 Solitary pulmonary nodule (principal); R39.9 Unspecified symptoms and signs involving the genitourinary system

== ENCOUNTER → 2024-08-11 | Outpatient (REF) | payer MEDICARE, OTHER ==
[2024-08-11 17:58] LABS: APPEARANCE, URINE CLEAR (CLEAR); BACTERIA, URINE AUTO NEGATIVE (NEGATIVE); BILIRUBIN, URINE AUTO NEGATIVE (NEGATIVE); BLOOD, URINE BLOOD 2+ (NEGATIVE); COLOR, URINE STRAW (YELLOW); GLUCOSE, URINE (UA) AUTO NEGATIVE (NEGATIVE); KETONE, URINE AUTO NEGATIVE (NEGATIVE); LEUKOCYTE ESTERASE, URINE AUTO NEGATIVE (NEGATIVE); NITRITE, URINE AUTO NEGATIVE (NEGATIVE); PROTEIN, URINE AUTO NEGATIVE (NEGATIVE); RBC, URINE AUTO 2 /HPF (0-3); SPECIFIC GRAVITY URINE AUTO 1.004 (1.002-1.035); SQUAMOUS EPITHELIAL CELL UR AU 1 /HPF (0-6); UROBILINOGEN, URINE AUTO 0.2 mg/dL (0.0-2.0); WBC, URINE AUTO 1 /HPF (0-3)
== END ==
LOC: M SMT 16:58
PROVIDERS: ATTEND Physician Assistant
DX: R39.9 Unspecified symptoms and signs involving the genitourinary system (principal)

== ENCOUNTER → 2024-09-13 | Outpatient (CLI) | payer MEDICARE, OTHER | LOC: M LAB 09:27 | PROVIDERS: ATTEND Nurse Practitioner Acute Care | DX: R06.00 Dyspnea, unspecified (principal) ==

== ENCOUNTER → 2024-09-14 | Outpatient (CLI) | payer MEDICARE, OTHER | LOC: M PLAIMG 13:06 | PROVIDERS: ATTEND Internal Medicine Pulmonary Disease | DX: J44.9 Chronic obstructive pulmonary disease, unspecified (principal); J43.9 Emphysema, unspecified; R06.02 Shortness of breath ==

== ENCOUNTER → 2024-09-15 | Outpatient (CLI) | payer MEDICARE, OTHER | LOC: M PLAIMG 11:40 | PROVIDERS: ATTEND Internal Medicine Pulmonary Disease | DX: J44.9 Chronic obstructive pulmonary disease, unspecified (principal) ==

== ENCOUNTER → 2024-11-21 | Outpatient (CLI) | payer MEDICARE, OTHER ==
[~2024-11-21] MED LIST changes: +BUDE0.5S6; +PANT40TA29 PO; +PRED5PAK PO; +TIZA10TA PO
== END ==
LOC: M RAD 10:58
PROVIDERS: ATTEND Physician Assistant
DX: M47.894 Other spondylosis, thoracic region (principal); M47.896 Other spondylosis, lumbar region; S22.060A Wedge compression fracture of T7-T8 vertebra, initial encounter for closed fracture; S22.050A Wedge compression fracture of T5-T6 vertebra, initial encounter for closed fracture; X58.XXXA Exposure to other specified factors, initial encounter; Y92.9 Unspecified place or not applicable; Y93.9 Activity, unspecified; Y99.9 Unspecified external cause status

== ENCOUNTER 2024-12-01 08:31 | Day surgery (SDC) | payer MEDICARE, OTHER ==
[~2024-12-01] VITALS: Ht 157.5 cm; Wt 70.0 kg
[~2024-12-01 08:31] MED LIST changes: +LIDOCAINE 2% 100 MG/5 ML SDV (FOR ANES.) As Ordered ONE
[2024-12-01 10:26] VITALS: TEMP 97.4
[2024-12-01 10:45] VITALS: BP 150/70; O2SAT 94
== END 2024-12-01 10:56 | disposition home or self-care (01) ==
LOC: M OPP 08:31
PROVIDERS: ATTEND Surgery
DX: Z12.11 Encounter for screening for malignant neoplasm of colon (principal); K57.30 Diverticulosis of large intestine without perforation or abscess without bleeding; K30 Functional dyspepsia; Z95.5 Presence of coronary angioplasty implant and graft; Z86.73 Personal history of transient ischemic attack (TIA), and cerebral infarction without residual deficits; Z88.1 Allergy status to other antibiotic agents; Z88.8 Allergy status to other drugs, medicaments and biological substances; Z91.048 Other nonmedicinal substance allergy status; Z79.51 Long term (current) use of inhaled steroids; Z79.02 Long term (current) use of antithrombotics/antiplatelets; Z79.52 Long term (current) use of systemic steroids; Z79.899 Other long term (current) drug therapy; J44.9 Chronic obstructive pulmonary disease, unspecified
CPT/HCPCS: 43235; 45385; 88305; J3010

== ENCOUNTER → 2024-12-16 | Outpatient (CLI) | payer MEDICARE, OTHER ==
[~2024-12-16] MED LIST changes: -LIDOCAINE 2% 100 MG/5 ML SDV (FOR ANES.) As Ordered ONE
[2024-12-16 16:00] LABS: ALT/SGPT 30.0 U/L (7.0-40); AST/SGOT 38.0 U/L (<34); CALCIUM LEVEL 8.8 MG/DL (8.3-10.6); CARBON DIOXIDE LEVEL 32.0 MMOL/L (20-31); CHLORIDE LEVEL 100.0 MMOL/L (98-107); CREATININE FOR GFR 0.91 MG/DL (0.55-1.30); GLOMERULAR FILTRATION RATE 69.2 (>45); POTASSIUM SERUM 3.7 MMOL/L (3.5-5.1); SODIUM LEVEL 143.0 MMOL/L (136-145)
== END ==
LOC: M PLALAB 12:57
PROVIDERS: ATTEND Advanced Practice Midwife
DX: M85.89 Other specified disorders of bone density and structure, multiple sites (principal)

== ENCOUNTER → 2024-12-16 | Outpatient (CLI) | payer MEDICARE, OTHER | LOC: M WHC 11:10 | PROVIDERS: ATTEND Advanced Practice Midwife | DX: Z12.31 Encounter for screening mammogram for malignant neoplasm of breast (principal); R92.323 Mammographic fibroglandular density, bilateral breasts ==

== ENCOUNTER → 2025-01-24 | Outpatient (REF) | payer MEDICARE, OTHER ==
[~2025-01-24] MED LIST changes: -EZET10TA21 PO; +EZET10TA57 PO
[2025-01-24 17:59] LABS: APPEARANCE, URINE CLEAR (CLEAR); BACTERIA, URINE AUTO NEGATIVE (NEGATIVE); BILIRUBIN, URINE AUTO NEGATIVE (NEGATIVE); BLOOD, URINE BLOOD 2+ (NEGATIVE); GLUCOSE, URINE (UA) AUTO NEGATIVE (NEGATIVE); KETONE, URINE AUTO NEGATIVE (NEGATIVE); LEUKOCYTE ESTERASE, URINE AUTO NEGATIVE (NEGATIVE); MUCUS, URINE SMALL (NEGATIVE); NITRITE, URINE AUTO NEGATIVE (NEGATIVE); PROTEIN, URINE AUTO NEGATIVE (NEGATIVE); RBC, URINE AUTO 2 /HPF (0-3); SPECIFIC GRAVITY URINE AUTO 1.011 (1.002-1.035); SQUAMOUS EPITHELIAL CELL UR AU 2 /HPF (0-6); UROBILINOGEN, URINE AUTO 0.2 mg/dL (0.0-2.0); WBC, URINE AUTO 1 /HPF (0-3)
== END ==
LOC: M SMT 16:48
PROVIDERS: ATTEND Physician Assistant
DX: R31.21 Asymptomatic microscopic hematuria (principal)